=== PATIENT | female | born 1945 | race Caucasian/White ===

== ENCOUNTER 2016-08-19 16:09 | Emergency (ER) | payer MEDICARE, OTHER ==
[~2016-08-19] VITALS: Ht 177.8 cm; Wt 90.9 kg
[2016-08-19] VITALS (7 sets, daily range): BP systolic 104–120; BP diastolic 32–59
[~2016-08-19 16:09] MED LIST: ACET-1757 PO; ACET325T26 PO; ACID1TAB7 PO; ATEN25TA PO; ATEN50TA41 PO; BUME0.5T PO; CEFD300C37 PO; DIPH60LI PO; HYDR12.53 PO; HYDR12.58 PO; IRON1TAB2 PO; METR500T PO; MORP10SO PO; MULT-709 PO; NYST1000 PO; NYST60PO TP; OMEP-110 PO; OMEP40CA6 PO; ONDA4TAB10 PO; POTA10CA PO; POTA10TA11 PO; POTA20PA PO; SUCR1TAB PO; SUCR1TAB26 PO; WARF1TAB PO
[2016-08-19] MEDS ORDERED: SODIUM CHLORIDE FLUSH 10ML SYR IVF ONE (16:30)
[2016-08-19] MEDS ORDERED: SODIUM CHLORIDE 0.9% 1,000 ML IV ONE (16:30)
[2016-08-19 17:23] LABS: BLOOD UREA NITROGEN 35 mg/dL (7-18)
[2016-08-19 17:45] LABS: DIFF TOTAL CELLS COUNTED 100 CELL DIFF
[2016-08-19 17:47] LABS: VERIFY COUNTS? YES
[2016-08-19 17:48] LABS: ANISOCYTOSIS 2+; HYPOCHROMIA 2+; MICROCYTOSIS 2+; OVALOCYTES 2+; SCHISTOCYTES 1+
[2016-08-19 18:33] LABS: OCCBLD OBC PASS
== END 2016-08-19 21:48 | disposition home or self-care (01) ==
LOC: ED 21:42
DX: N28.9 Disorder of kidney and ureter, unspecified (principal); D62 Acute posthemorrhagic anemia; E11.9 Type 2 diabetes mellitus without complications; I10 Essential (primary) hypertension; Z88.0 Allergy status to penicillin; Z88.1 Allergy status to other antibiotic agents; Z91.040 Latex allergy status; Z88.2 Allergy status to sulfonamides; Z93.3 Colostomy status
CPT/HCPCS: 36415; 36430; 80048; 82040; 82272; 85025; 85610; 85730; 86850; 86900; 86923; 93005; 96360; 96361; 99285; J7030; P9016

== ENCOUNTER 2016-09-15 14:05 | Inpatient (IN) | payer MEDICARE, OTHER ==
[~2016-09-15] VITALS: Ht 175.3 cm; Wt 95.3 kg
[2016-09-15] VITALS (10 sets, daily range): BP systolic 92–116; BP diastolic 44–69
[2016-09-15] MEDS ORDERED: PANTOPRAZOLE 80 MG in SODIUM CHLORIDE 0.9% 100 ML IVPB ONE (15:21)
[2016-09-15] MEDS ORDERED: SODIUM CHLORIDE 0.9% 1,000ML IVBOLUS ONE (15:30)
[2016-09-15] MEDS ORDERED: SODIUM CHLORIDE FLUSH 10ML SYR IVF ONE (15:30)
[2016-09-15 16:08] LABS: BLOOD UREA NITROGEN 33 mg/dL (7-18)
[2016-09-15 16:32] LABS: DIFF TOTAL CELLS COUNTED 100 CELL DIFF
[2016-09-15 16:34] LABS: VERIFY COUNTS? YES
[2016-09-15 16:35] LABS: ANISOCYTOSIS 2+; HYPOCHROMIA 2+; MICROCYTOSIS 2+; OVALOCYTES 1+
[2016-09-15 16:36] LABS: LARGE PLATELETS 1+
[2016-09-15] MEDS ORDERED: POTASSIUM CHLORIDE 20 MEQ TAB.ER.PRT PO ONE (17:30)
[2016-09-15] MEDS ORDERED: ONDANSETRON ODT 4 MG PO PRN (17:30)
[2016-09-15] MEDS ORDERED: PROMETHAZINE 25 MG/ML, 1ML IM PRN (17:30)
[2016-09-15] MEDS ORDERED: ONDANSETRON 2MG/ML, 2ML IVPush PRN (17:30)
[2016-09-15] MEDS: PANTOPRAZOLE 40 MG IV IVPush SCH (20:16)
[2016-09-15] MEDS: NS + 20MEQ KCL 1,000 ML IV SCH (20:16)
[2016-09-16] VITALS (12 sets, daily range): BP systolic 94–110; BP diastolic 49–67
[2016-09-16 03:39] LABS: ASPARTATE AMINO TRANSFERASE 14 U/L (15-37); BLOOD UREA NITROGEN 28 mg/dL (7-18)
[2016-09-16 03:56] LABS: DIFF TOTAL CELLS COUNTED 100 CELL DIFF
[2016-09-16 04:05] LABS: ANISOCYTOSIS 1+; VERIFY COUNTS? YES
[2016-09-16 04:06] LABS: HYPOCHROMIA 1+; OVALOCYTES 1+
[2016-09-16 04:07] LABS: LARGE PLATELETS 1+
[2016-09-16 04:41] LABS: OCCBLD OBC PASS
[2016-09-16] MEDS ORDERED: FENTANYL PF 100 MCG/2ML ONE (08:19)
[2016-09-16] MEDS ORDERED: MIDAZOLAM 1 MG/ML, 5ML ONE (08:19)
[2016-09-16] MEDS: PANTOPRAZOLE 40 MG IV IVPush SCH ×2 (11:10→22:51)
[2016-09-16] MEDS: NS + 20MEQ KCL 1,000 ML IV SCH (11:12)
[2016-09-17] VITALS (15 sets, daily range): BP systolic 91–113; BP diastolic 50–65
[2016-09-17] MEDS ORDERED: ACETAMINOPHEN 325 MG TABLET ONE (02:09)
[2016-09-17] MEDS: NS + 20MEQ KCL 1,000 ML IV SCH ×2 (02:16→12:00)
[2016-09-17] MEDS ORDERED: ACETAMINOPHEN 325 MG TABLET PO ONE (02:30)
[2016-09-17 06:14] LABS: BLOOD UREA NITROGEN 24 mg/dL (7-18)
[2016-09-17 06:17] LABS: ASPARTATE AMINO TRANSFERASE 18 U/L (15-37)
[2016-09-17] MEDS ORDERED: IRON SUCROSE COMPLEX 500 MG in SODIUM CHLORIDE 0.9% 250 ML IV ONE (10:00)
[2016-09-17] MEDS ORDERED: IRON SUCROSE COMPLEX 100MG/5ML IV SCH (10:00)
[2016-09-18] MEDS: NS + 20MEQ KCL 1,000 ML IV SCH ×3 (00:59→23:10)
[2016-09-18 03:17] VITALS: BP 113/65
[2016-09-18 05:39] LABS: BLOOD UREA NITROGEN 21 mg/dL (7-18)
[2016-09-18 06:43] LABS: DIFF TOTAL CELLS COUNTED 100 CELL DIFF
[2016-09-18 06:50] LABS: VERIFY COUNTS? YES
[2016-09-18 06:51] LABS: ANISOCYTOSIS 1+; HYPOCHROMIA 1+; OVALOCYTES 1+
[2016-09-18 06:52] LABS: LARGE PLATELETS 1+
[2016-09-18 07:41] VITALS: BP 100/63
[2016-09-18] MEDS: IRON SUCROSE COMPLEX 100MG/5ML IV SCH (09:37)
[2016-09-18 13:59] VITALS: BP 99/60
[2016-09-18 19:32] VITALS: BP 106/65
[2016-09-19 00:44] VITALS: BP 95/59
[2016-09-19 06:07] LABS: ANISOCYTOSIS 1+; MICROCYTOSIS 1+
[2016-09-19 06:08] LABS: HYPOCHROMIA 1+; OVALOCYTES 1+
[2016-09-19 06:10] LABS: LARGE PLATELETS 1+
[2016-09-19 06:50] VITALS: BP 95/53
[2016-09-19] MEDS ORDERED: FERR325T20 PO (09:00)
[2016-09-19] MEDS: IRON SUCROSE COMPLEX 100MG/5ML IV SCH (09:00)
[2016-09-19] MEDS ORDERED: OMEP-110 PO (09:15)
== END 2016-09-19 11:04 | disposition home or self-care (01) | DRG 393 ==
LOC: ED 16:39 → EDIP 17:02 → 4EST 18:30
PROC: 30233N1 Transfusion of Nonautologous Red Blood Cells into Peripheral Vein, Percutaneous Approach (ICD-10-PCS; 2016-09-15)
PROC: 0DB98ZX Excision of Duodenum, Via Natural or Artificial Opening Endoscopic, Diagnostic (ICD-10-PCS; 2016-09-16)
PROC: 0DJD8ZZ Inspection of Lower Intestinal Tract, Via Natural or Artificial Opening Endoscopic (ICD-10-PCS; principal; 2016-09-16 08:30)
DX: K94.11 Enterostomy hemorrhage (principal); E43 Unspecified severe protein-calorie malnutrition; N17.0 Acute kidney failure with tubular necrosis; K76.6 Portal hypertension; D62 Acute posthemorrhagic anemia; E87.1 Hypo-osmolality and hyponatremia; D61.818 Other pancytopenia; K92.1 Melena; I85.00 Esophageal varices without bleeding; K31.7 Polyp of stomach and duodenum; D69.6 Thrombocytopenia, unspecified; D72.819 Decreased white blood cell count, unspecified; E87.6 Hypokalemia; K76.0 Fatty (change of) liver, not elsewhere classified; I12.9 Hypertensive chronic kidney disease with stage 1 through stage 4 chronic kidney disease, or unspecified chronic kidney disease; E66.01 Morbid (severe) obesity due to excess calories; M54.9 Dorsalgia, unspecified; G89.29 Other chronic pain; N18.9 Chronic kidney disease, unspecified; E11.22 Type 2 diabetes mellitus with diabetic chronic kidney disease; Y83.2 Surgical operation with anastomosis, bypass or graft as the cause of abnormal reaction of the patient, or of later complication, without mention of misadventure at the time of the procedure; K74.69 Other cirrhosis of liver; K21.9 Gastro-esophageal reflux disease without esophagitis; Y92.89 Other specified places as the place of occurrence of the external cause; Z87.891 Personal history of nicotine dependence; Z80.0 Family history of malignant neoplasm of digestive organs; Z88.5 Allergy status to narcotic agent; Z88.0 Allergy status to penicillin; Z88.2 Allergy status to sulfonamides; Z88.8 Allergy status to other drugs, medicaments and biological substances; Z88.1 Allergy status to other antibiotic agents; Z90.49 Acquired absence of other specified parts of digestive tract; Z91.040 Latex allergy status; Z85.038 Personal history of other malignant neoplasm of large intestine; Z68.31 Body mass index [BMI] 31.0-31.9, adult; K22.2 Esophageal obstruction
CPT/HCPCS: 36415; 36430; 80048; 80053; 80076; 82040; 82272; 82728; 83540; 83550; 84466; 85014; 85018; 85025; 85610; 85730; 86850; 86900; 86923; 88305; 93005; 96365; 99151; J1756; J2250; J3010; J3480; C9113; J7030; J7050; P9016

== ENCOUNTER 2016-10-14 17:33 | Emergency (ER) | payer MEDICARE, OTHER ==
[2016-10-14] VITALS (8 sets, daily range): BP systolic 99–113; BP diastolic 35–48
[~2016-10-14] VITALS: Ht 175.3 cm; Wt 93.6 kg
[~2016-10-14 17:33] MED LIST changes: +FERR325T20 PO
[2016-10-14] MEDS ORDERED: SODIUM CHLORIDE 0.9% 1,000ML IVBOLUS ONE (18:00)
[2016-10-14 18:09] LABS: DIFF TOTAL CELLS COUNTED 100 CELL DIFF
[2016-10-14 18:15] LABS: ASPARTATE AMINO TRANSFERASE 27 U/L (15-37); BLOOD UREA NITROGEN 30 mg/dL (7-18)
[2016-10-14 18:27] LABS: ANISOCYTOSIS 1+; HYPOCHROMIA 2+; MICROCYTOSIS 1+; OVALOCYTES 1+; POLYCHROMASIA 1+; VERIFY COUNTS? YES
[2016-10-14 18:28] LABS: LARGE PLATELETS 1+
== END 2016-10-14 23:01 | disposition home or self-care (01) ==
LOC: ED 20:08
DX: K92.2 Gastrointestinal hemorrhage, unspecified (principal); D64.9 Anemia, unspecified; I10 Essential (primary) hypertension; E11.9 Type 2 diabetes mellitus without complications; Z85.9 Personal history of malignant neoplasm, unspecified
CPT/HCPCS: 36415; 36430; 80053; 85025; 86850; 86900; 86923; 99285; P9016

== ENCOUNTER 2016-12-07 17:45 | Inpatient (IN) | payer MEDICARE, OTHER ==
[~2016-12-07] VITALS: Ht 175.3 cm; Wt 94.4 kg
[~2016-12-07 17:45] MED LIST changes: +FERR325T18 PO; -FERR325T20 PO; -SUCR1TAB26 PO; +SUCR1TAB33 PO
[2016-12-07] MEDS ORDERED: SODIUM CHLORIDE 0.9% 1,000ML IVBOLUS ONE (18:30)
[2016-12-07] MEDS ORDERED: SODIUM CHLORIDE FLUSH 10ML SYR IVF ONE (18:30)
[2016-12-07 18:33] LABS: HEMATOCRIT 25.1 % (34.6-47.8)
[2016-12-07 18:42] LABS: BLOOD UREA NITROGEN 32 mg/dL (7-18)
[2016-12-07 18:45] LABS: ASPARTATE AMINO TRANSFERASE 23 U/L (15-37)
[2016-12-07 18:54] LABS: ANISOCYTOSIS 1+; HYPOCHROMIA 1+; MICROCYTOSIS 1+; POLYCHROMASIA 1+
[2016-12-07 18:55] LABS: OVALOCYTES 1+
[2016-12-07 19:08] LABS: WHITE BLOOD COUNT 4.5 x10^3/uL (3.4-10)
[2016-12-07 23:23] VITALS: BP 111/55
[2016-12-08] VITALS (9 sets, daily range): BP systolic 80–147; BP diastolic 50–71
[2016-12-08] MEDS ORDERED: PROMETHAZINE 25 MG/ML, 1ML IM PRN
[2016-12-08] MEDS ORDERED: ACETAMINOPHEN 325 MG TABLET PO PRN
[2016-12-08] MEDS ORDERED: ONDANSETRON 2MG/ML, 2ML IVPush PRN
[2016-12-08 00:14] LABS: HEMATOCRIT 25.1 % (34.6-47.8); HEMOGLOBIN 7.7 g/dL (11.7-16.4)
[2016-12-08] MEDS: SODIUM CHLORIDE 0.9% 1,000 ML IV SCH ×3 (00:15→19:45)
[2016-12-08 06:14] LABS: HEMOGLOBIN 6.2 g/dL (11.7-16.4)
[2016-12-08 06:23] LABS: BLOOD UREA NITROGEN 31 mg/dL (7-18)
[2016-12-08 06:26] LABS: ASPARTATE AMINO TRANSFERASE 21 U/L (15-37)
[2016-12-08] MEDS ORDERED: FENTANYL PF 100 MCG/2ML ONE (10:20)
[2016-12-08] MEDS ORDERED: MIDAZOLAM 1 MG/ML, 5ML ONE (10:20)
[2016-12-08] MEDS ORDERED: SILVER NITRATE STICK TP ONE (11:34)
[2016-12-09 00:07] LABS: HEMATOCRIT 26.3 % (34.6-47.8); HEMOGLOBIN 8.6 g/dL (11.7-16.4)
[2016-12-09 04:29] VITALS: BP 94/57
[2016-12-09] MEDS: SODIUM CHLORIDE 0.9% 1,000 ML IV SCH (05:45)
[2016-12-09 06:25] LABS: HEMATOCRIT 24.2 % (34.6-47.8); HEMOGLOBIN 7.9 g/dL (11.7-16.4)
[2016-12-09 06:35] LABS: ASPARTATE AMINO TRANSFERASE 22 U/L (15-37); BLOOD UREA NITROGEN 25 mg/dL (7-18)
[2016-12-09 08:30] VITALS: BP 96/57
[2016-12-09 09:08] VITALS: BP 95/64
[2016-12-09 11:53] LABS: HEMATOCRIT 26.8 % (34.6-47.8); HEMOGLOBIN 8.3 g/dL (11.7-16.4)
[2016-12-09 15:00] VITALS: BP 97/63
[2016-12-09 18:34] VITALS: BP 100/61
== END 2016-12-09 18:55 | disposition home or self-care (01) | DRG 393 ==
LOC: ED 18:41 → EDIP 22:22 → 4NOR 23:07
PROVIDERS: ADMIT Internal Medicine; ATTEND Internal Medicine
PROC: 30233N1 Transfusion of Nonautologous Red Blood Cells into Peripheral Vein, Percutaneous Approach (ICD-10-PCS; 2016-12-08)
PROC: 0DJD8ZZ Inspection of Lower Intestinal Tract, Via Natural or Artificial Opening Endoscopic (ICD-10-PCS; principal; 2016-12-08 10:00)
DX: K94.11 Enterostomy hemorrhage (principal); E43 Unspecified severe protein-calorie malnutrition; I81 Portal vein thrombosis; N17.9 Acute kidney failure, unspecified; D68.69 Other thrombophilia; E11.22 Type 2 diabetes mellitus with diabetic chronic kidney disease; I85.00 Esophageal varices without bleeding; E87.1 Hypo-osmolality and hyponatremia; I82.891 Chronic embolism and thrombosis of other specified veins; D62 Acute posthemorrhagic anemia; N18.3 Chronic kidney disease, stage 3 (moderate); K74.69 Other cirrhosis of liver; Z68.30 Body mass index [BMI] 30.0-30.9, adult; D73.5 Infarction of spleen; I12.9 Hypertensive chronic kidney disease with stage 1 through stage 4 chronic kidney disease, or unspecified chronic kidney disease; K21.9 Gastro-esophageal reflux disease without esophagitis; K75.81 Nonalcoholic steatohepatitis (NASH); Z82.49 Family history of ischemic heart disease and other diseases of the circulatory system; Z85.038 Personal history of other malignant neoplasm of large intestine; Z87.891 Personal history of nicotine dependence; Z90.49 Acquired absence of other specified parts of digestive tract; Z93.3 Colostomy status; Z88.5 Allergy status to narcotic agent; Z88.0 Allergy status to penicillin; Z88.2 Allergy status to sulfonamides; Z88.8 Allergy status to other drugs, medicaments and biological substances
CPT/HCPCS: 36415; 78278; 80053; 85014; 85018; 85025; 85610; 85730; 86850; 86900; 86923; 99152; 99153; 99285; J2250; J3010; A9560; C9898; J7030; P9016

== ENCOUNTER 2017-02-22 15:02 | Inpatient (IN) | payer MEDICARE, OTHER ==
[~2017-02-22] VITALS: Ht 177.8 cm; Wt 97.8 kg
[2017-02-22] VITALS (8 sets, daily range): BP systolic 94–117; BP diastolic 43–71
[2017-02-22] MEDS ORDERED: SODIUM CHLORIDE FLUSH 10ML SYR IVF ONE (15:30)
[2017-02-22] MEDS ORDERED: SODIUM CHLORIDE 0.9% 1,000ML IVBOLUS ONE (15:30)
[2017-02-22 16:07] LABS: ASPARTATE AMINO TRANSFERASE 22 U/L (15-37); BLOOD UREA NITROGEN 32 mg/dL (7-18)
[2017-02-22 16:11] LABS: WHITE BLOOD COUNT 3.1 x10^3/uL (3.4-10)
[2017-02-22 16:12] LABS: HEMATOCRIT 13.4 % (34.6-47.8)
[2017-02-22 16:27] LABS: DIFF TOTAL CELLS COUNTED 200 CELL DIFF; VERIFY COUNTS? YES
[2017-02-22 16:28] LABS: ANISOCYTOSIS 1+
[2017-02-22 16:29] LABS: HYPOCHROMIA 2+; MICROCYTOSIS 2+; OVALOCYTES 1+; POIKILOCYTOSIS 1+; POLYCHROMASIA 1+; SCHISTOCYTES 1+; TARGET CELLS 1+
[2017-02-22] MEDS ORDERED: POTASSIUM CHLORIDE 20 MEQ TAB.ER.PRT PO ONE ×2 (16:30→20:00)
[2017-02-22] MEDS ORDERED: POTASSIUM CHLORIDE 40 MEQ in SODIUM CHLORIDE 0.9% 500 ML IV ONE (16:30)
[2017-02-22 16:31] LABS: GIANT PLATELETS 1+
[2017-02-22] MEDS ORDERED: ONDANSETRON 2MG/ML, 2ML IVPush PRN (18:00)
[2017-02-22] MEDS ORDERED: ACETAMINOPHEN 650 MG SUPP PR PRN (18:00)
[2017-02-22] MEDS ORDERED: FUROSEMIDE 20 MG/2 ML IVPush ONE (18:00)
[2017-02-23] VITALS (23 sets, daily range): BP systolic 86–114; BP diastolic 42–72
[2017-02-23 01:33] LABS: PATH.CAST-FLAG NOT PRESENT; SPERM-FLAG NOT PRESENT; SRC-FLAG NOT PRESENT; XTAL-FLAG NOT PRESENT; YLC-FLAG NOT PRESENT
[2017-02-23] MEDS ORDERED: CALCIUM CARBONATE 500 MG TAB.CHEW PO PRN (02:00)
[2017-02-23] MEDS ORDERED: POTASSIUM CHLORIDE 20 MEQ TAB.ER.PRT PO ONE ×2 (06:00→13:30)
[2017-02-23 10:40] LABS: BLOOD UREA NITROGEN 26 mg/dL (7-18)
[2017-02-23 11:02] LABS: WHITE BLOOD COUNT 2.3 x10^3/uL (3.4-10)
[2017-02-23 11:04] LABS: HEMOGLOBIN 6.9 g/dL (11.7-16.4)
[2017-02-23] MEDS ORDERED: FUROSEMIDE 20 MG/2 ML IVPush ONE ×2 (11:15→13:30)
[2017-02-23 13:25] LABS: HEMATOCRIT 21.4 % (34.6-47.8); HEMOGLOBIN 6.9 g/dL (11.7-16.4)
[2017-02-24 01:13] VITALS: BP 113/68
[2017-02-24 01:18] VITALS: BP 113/68
[2017-02-24 06:44] VITALS: BP 90/51
[2017-02-24 10:23] LABS: BLOOD UREA NITROGEN 28 mg/dL (7-18)
[2017-02-24 15:15] VITALS: BP 114/66
[2017-02-24 18:59] VITALS: BP 96/58
[2017-02-24] MEDS ORDERED: POTASSIUM CHLORIDE 20 MEQ TAB.ER.PRT PO ONE (21:30)
[2017-02-25] VITALS (11 sets, daily range): BP systolic 92–109; BP diastolic 47–64
[2017-02-25 06:36] LABS: HEMATOCRIT 23.8 % (34.6-47.8); HEMOGLOBIN 7.8 g/dL (11.7-16.4); WHITE BLOOD COUNT 2.8 x10^3/uL (3.4-10)
[2017-02-25 06:44] LABS: BLOOD UREA NITROGEN 28 mg/dL (7-18)
[2017-02-25] MEDS ORDERED: SUCCINYLCHOLINE 20 MG/ML, 10ML ONE (13:39)
[2017-02-25] MEDS ORDERED: GLYCOPYRROLATE 0.2MG/1ML, 5ML ONE (13:39)
[2017-02-25] MEDS ORDERED: CEFOTETAN 2 GM ONE (13:39)
[2017-02-25] MEDS ORDERED: DEXAMETHASONE 4 MG/ML, 1ML ONE (13:39)
[2017-02-25] MEDS ORDERED: ROCURONIUM 10 MG/ML,10ML ONE (13:39)
[2017-02-25] MEDS ORDERED: NEOSTIGMINE 1 MG/ML, 10ML ONE (13:39)
[2017-02-25] MEDS ORDERED: ONDANSETRON 2MG/ML, 2ML ONE (13:39)
[2017-02-25] MEDS ORDERED: PROPOFOL 10 MG/ML, 20ML ONE (13:39)
[2017-02-25] MEDS ORDERED: LABETALOL 5MG/ML, 20ML IV PRN (15:00)
[2017-02-25] MEDS ORDERED: ONDANSETRON 2MG/ML, 2ML IVPush PRN (15:00)
[2017-02-25] MEDS ORDERED: OXYcodone 5 MG/5 ML ORAL.SOL UDC PO PRN (15:00)
[2017-02-25] MEDS ORDERED: HYDROmorphone 1 MG/ML, 1ML IV PRN (15:00)
[2017-02-25] MEDS ORDERED: FENTANYL PF 100 MCG/2ML IV PRN (15:00)
[2017-02-25] MEDS ORDERED: hydrALAzine 20 MG/ML, 1ML IV PRN (15:00)
[2017-02-25] MEDS ORDERED: OXYcodone 5 MG/5 ML ORAL.SOL UDC ONE (15:06)
[2017-02-25] MEDS ORDERED: HYDROmorphone 1 MG/ML, 1ML ONE (15:06)
[2017-02-25] MEDS: POTASSIUM CHLORIDE 20 MEQ in LACTATED RINGERS 1,000 ML IV SCH ×2 (17:52→23:10)
[2017-02-26 03:32] VITALS: BP 102/62
[2017-02-26 06:38] VITALS: BP 98/46
[2017-02-26 07:57] LABS: BLOOD UREA NITROGEN 30 mg/dL (7-18)
[2017-02-26 08:09] LABS: HEMATOCRIT 32.1 % (34.6-47.8); HEMOGLOBIN 10.3 g/dL (11.7-16.4); WHITE BLOOD COUNT 4.3 x10^3/uL (3.4-10)
[2017-02-26 09:03] LABS: HYPOCHROMIA 1+; MICROCYTOSIS 1+; OVALOCYTES 1+; POLYCHROMASIA 1+
[2017-02-26 09:04] LABS: SCHISTOCYTES 1+
[2017-02-26 09:06] LABS: LARGE PLATELETS 1+
[2017-02-26 12:12] VITALS: BP 103/45
[2017-02-26] MEDS: POTASSIUM CHLORIDE 20 MEQ in LACTATED RINGERS 1,000 ML IV SCH (13:00)
[2017-02-26] MEDS ORDERED: ACETAMINOPHEN 325 MG TABLET PO PRN (14:00)
[2017-02-26 19:16] VITALS: BP 113/66
[2017-02-27 02:05] VITALS: BP 102/60
[2017-02-27] MEDS ORDERED: FERR325T18 PO (06:45)
[2017-02-27] MEDS ORDERED: ASCO-96 PO (06:46)
[2017-02-27 07:33] VITALS: BP 101/60
[2017-02-27 13:26] VITALS: BP 102/57
== END 2017-02-27 16:35 | disposition home or self-care (01) | DRG 329 ==
LOC: ED 16:43 → EDIP 16:44 → ED 16:52 → 4WST 18:02
PROVIDERS: ADMIT Internal Medicine; ATTEND Internal Medicine
PROC: 30233N1 Transfusion of Nonautologous Red Blood Cells into Peripheral Vein, Percutaneous Approach (ICD-10-PCS; 2017-02-22)
PROC: 0DQB0ZZ Repair Ileum, Open Approach (ICD-10-PCS; principal; 2017-02-25 13:30)
DX: K94.13 Enterostomy malfunction (principal); E43 Unspecified severe protein-calorie malnutrition; I85.11 Secondary esophageal varices with bleeding; I82.890 Acute embolism and thrombosis of other specified veins; K76.6 Portal hypertension; E11.22 Type 2 diabetes mellitus with diabetic chronic kidney disease; R18.8 Other ascites; D62 Acute posthemorrhagic anemia; D73.5 Infarction of spleen; T85.638A Leakage of other specified internal prosthetic devices, implants and grafts, initial encounter; K94.11 Enterostomy hemorrhage; N18.3 Chronic kidney disease, stage 3 (moderate); D50.0 Iron deficiency anemia secondary to blood loss (chronic); K21.9 Gastro-esophageal reflux disease without esophagitis; E87.6 Hypokalemia; G89.29 Other chronic pain; I12.9 Hypertensive chronic kidney disease with stage 1 through stage 4 chronic kidney disease, or unspecified chronic kidney disease; K74.69 Other cirrhosis of liver; K75.81 Nonalcoholic steatohepatitis (NASH); M54.9 Dorsalgia, unspecified; D12.6 Benign neoplasm of colon, unspecified; Y83.3 Surgical operation with formation of external stoma as the cause of abnormal reaction of the patient, or of later complication, without mention of misadventure at the time of the procedure; Y92.89 Other specified places as the place of occurrence of the external cause; Z85.038 Personal history of other malignant neoplasm of large intestine; Z86.718 Personal history of other venous thrombosis and embolism; Z87.891 Personal history of nicotine dependence; Z90.49 Acquired absence of other specified parts of digestive tract; Z93.3 Colostomy status; Z88.0 Allergy status to penicillin; Z88.1 Allergy status to other antibiotic agents; Z88.2 Allergy status to sulfonamides; Z88.8 Allergy status to other drugs, medicaments and biological substances
CPT/HCPCS: 36415; 71010; 80048; 80053; 81001; 83735; 85014; 85018; 85025; 85610; 85730; 86850; 86900; 86923; 87077; 87086; 87186; 93005; 96360; J1100; J1170; J2250; J2405; J2704; J2710; J3010; J3480; J3490; J0330; J1940; J7030; J7040; J7120; P9016; S0074

== ENCOUNTER → 2017-04-26 | Outpatient (CLI) | payer MEDICARE, OTHER ==
[~2017-04-26] MED LIST changes: +ASCO-96 PO
== END | disposition home or self-care (01) ==
LOC: CFH 08:39
PROVIDERS: ATTEND Internal Medicine Gastroenterology
DX: I81 Portal vein thrombosis (principal); D62 Acute posthemorrhagic anemia; I10 Essential (primary) hypertension; K74.69 Other cirrhosis of liver; I85.00 Esophageal varices without bleeding; D50.0 Iron deficiency anemia secondary to blood loss (chronic); G89.29 Other chronic pain; T39.395S Adverse effect of other nonsteroidal anti-inflammatory drugs [NSAID], sequela
CPT/HCPCS: 76700

== ENCOUNTER 2017-05-20 07:04 | Day surgery (SDC) | payer MEDICARE, OTHER ==
[~2017-05-20] VITALS: Ht 177.8 cm; Wt 99.9 kg
[2017-05-20 08:31] VITALS: BP 112/64
[2017-05-20] MEDS ORDERED: SODIUM CHLORIDE 0.9% 1,000 ML IV SCH (08:43)
[2017-05-20] MEDS ORDERED: NONE PER PT (08:47)
[2017-05-20 08:49] LABS: INTERNATIONAL NORMALIZED RATIO 1.17 (0.93-1.1)
[2017-05-20] MEDS ORDERED: LIDOCAINE 1%, 20ML ONE (08:54)
[2017-05-20] MEDS ORDERED: LIDOCAINE 2%, 20ML ONE (08:55)
[2017-05-20 09:35] LABS: MEAN CORPUSCULAR HEMOGLOBIN 23.2 pg (27.0-34.8); MEAN CORPUSCULAR HGB CONC 31.5 g/dL (32.4-35.8); MEAN CORPUSCULAR VOLUME 73.6 fL (80-100); PLATELET COUNT 92 x10^3/uL (130-400); RED BLOOD COUNT 3.01 x10^6/uL (3.82-5.3); RED CELL DISTRIBUTION WIDTH 17.8 % (9.6-15.2)
[2017-05-20 09:41] LABS: MD YES
[2017-05-20 09:47] LABS: EOS#(MANUAL) 0.07 x10^3/uL (0.0-0.4); EOS% (MANUAL) 4 % (1-7); LYMPH#(MANUAL) 0.32 x10^3/uL (1-3.4); LYMPHS% (MANUAL) 18 % (22-44); MONOS#(MANUAL) 0.11 x10^3/uL (0.3-2.7); MONOS% (MANUAL) 6 % (2-9); SEGS% (MANUAL) 72 % (42-75)
[2017-05-20 09:49] LABS: ANISOCYTOSIS 1+; HYPOCHROMIA 1+; MICROCYTOSIS 1+; OVALOCYTES 1+
[2017-05-20 09:50] LABS: SCHISTOCYTES 1+
[2017-05-20 09:51] LABS: <PLATELET ESTIMATE> DECREASED; <PLT MORPHOLOGY> NORMAL PLT MORPH
[2017-05-20 11:24] LABS: ANION GAP 8 mmol/L (5-15); CALCIUM 7.9 mg/dL (8.5-10.1); CHLORIDE 109 mmol/L (98-107)
[2017-05-20 11:25] LABS: CREATININE 1.39 mg/dL (0.55-1.02)
== END 2017-05-20 11:00 ==
LOC: ORIP 07:04 → UNDOADMIN 07:04 → RAD 07:04 → UNDODISIN 11:00
PROVIDERS: ATTEND Internal Medicine Gastroenterology
DX: K74.60 Unspecified cirrhosis of liver (principal); Z53.9 Procedure and treatment not carried out, unspecified reason
CPT/HCPCS: 36415; 37182; 80048; 85025; 85610; J3490; J7030

== ENCOUNTER 2017-05-31 16:13 | Emergency (ER) | payer MEDICARE, OTHER ==
[~2017-05-31] VITALS: Ht 177.8 cm; Wt 99.9 kg
[2017-05-31] VITALS (7 sets, daily range): BP systolic 111–128; BP diastolic 40–51
[~2017-05-31 16:13] MED LIST changes: +NONE PER PT
[2017-05-31 17:15] LABS: ALANINE AMINOTRANSFERASE 23 U/L (12-78); ALBUMIN 2.8 g/dL (3.4-5.0); ANION GAP 7 mmol/L (5-15); CALCIUM 7.8 mg/dL (8.5-10.1); CHLORIDE 110 mmol/L (98-107); CREATININE 1.35 mg/dL (0.55-1.02)
[2017-05-31 17:17] LABS: ALKALINE PHOSPHATASE 127 U/L (45-117); BILIRUBIN,TOTAL 0.6 mg/dL (0.2-1.0); TOTAL PROTEIN 6.2 g/dL (6.4-8.2)
[2017-05-31 17:18] LABS: MD YES; MEAN CORPUSCULAR HEMOGLOBIN 22.4 pg (27.0-34.8); MEAN CORPUSCULAR HGB CONC 31.3 g/dL (32.4-35.8); MEAN CORPUSCULAR VOLUME 71.4 fL (80-100); MEAN PLATELET VOLUME 10.8 fL (7.4-10.4); PLATELET COUNT 104 x10^3/uL (130-400); RED BLOOD COUNT 3.22 x10^6/uL (3.82-5.3)
[2017-05-31 17:35] LABS: ANISOCYTOSIS 1+; EOS#(MANUAL) 0.04 x10^3/uL (0.0-0.4); EOS% (MANUAL) 2 % (1-7); LYMPH#(MANUAL) 0.32 x10^3/uL (1-3.4); LYMPHS% (MANUAL) 16 % (22-44); MONOS#(MANUAL) 0.08 x10^3/uL (0.3-2.7); MONOS% (MANUAL) 4 % (2-9); SEG#(MANUAL) 1.56 x10^3/uL (1.8-6.8); SEGS% (MANUAL) 78 % (42-75)
[2017-05-31 17:36] LABS: <PLATELET ESTIMATE> DECREASED; <PLT MORPHOLOGY> NORMAL PLT MORPH; HYPOCHROMIA 1+; MICROCYTOSIS 1+; OVALOCYTES 1+; SCHISTOCYTES 1+
[2017-05-31] MEDS ORDERED: SODIUM CHLORIDE 0.9% 1,000ML IVBOLUS ONE (19:00)
[2017-05-31] MEDS ORDERED: SODIUM CHLORIDE FLUSH 10ML SYR IVF ONE (19:00)
[2017-05-31] MEDS ORDERED: PANTOPRAZOLE 40 MG IV IVPush ONE (19:00)
[2017-05-31 19:02] LABS: INTERNATIONAL NORMALIZED RATIO 1.12 (0.93-1.1); PROTHROMBIN TIME 11.5 Seconds (9.6-11.5)
[2017-05-31] MEDS ORDERED: PANTOPRAZOLE 40 MG IV ONE (19:25)
== END 2017-05-31 22:29 | disposition left against medical advice (07) ==
LOC: ED 18:00
DX: K92.1 Melena (principal); D62 Acute posthemorrhagic anemia; E11.9 Type 2 diabetes mellitus without complications; I10 Essential (primary) hypertension; E87.6 Hypokalemia; Z90.49 Acquired absence of other specified parts of digestive tract; Z93.3 Colostomy status
CPT/HCPCS: 36415; 36430; 80053; 85025; 85610; 85730; 86850; 86900; 86923; 96361; 96374; 99285; C9113; J7030; P9016

== ENCOUNTER 2017-06-21 05:48 | Day surgery (SDC) | payer MEDICARE, OTHER ==
[2017-06-18 14:20] LABS: INTERNATIONAL NORMALIZED RATIO 1.12 (0.93-1.1); PROTHROMBIN TIME 11.6 Seconds (9.6-11.5)
[~2017-06-21] VITALS: Ht 177.8 cm; Wt 100.6 kg
[~2017-06-21 05:48] MED LIST changes: +No meds per pt.
[2017-06-21] MEDS ORDERED: EPINEPHRINE 1 MG/ML, 1ML ONE (06:16)
[2017-06-21] MEDS ORDERED: BUPIVACAINE/PF 0.25% ONE (06:16)
[2017-06-21] MEDS ORDERED: BUPIVACAINE/PF 0.5% ONE (06:22)
[2017-06-21 06:31] VITALS: BP 131/47
[2017-06-21] MEDS ORDERED: LACTATED RINGERS 1,000 ML IV SCH (06:33)
[2017-06-21 07:32] LABS: INTERNATIONAL NORMALIZED RATIO 1.16 (0.93-1.1)
[2017-06-21] MEDS ORDERED: MIDAZOLAM 1 MG/ML, 2ML ONE ×2 (07:37→11:58)
[2017-06-21] MEDS ORDERED: FENTANYL PF 250 MCG/5ML ONE (07:38)
[2017-06-21] MEDS ORDERED: ACETAMINOPHEN 500 MG TABLET ONE (07:42)
[2017-06-21] MEDS ORDERED: SCOPOLAMINE PATCH, 1.5MG PATCH.TD72 TD ONE ×2 (07:42→08:00)
[2017-06-21 07:45] LABS: MEAN CORPUSCULAR HEMOGLOBIN 23.4 pg (27.0-34.8); MEAN CORPUSCULAR HGB CONC 32.1 g/dL (32.4-35.8); MEAN CORPUSCULAR VOLUME 73.1 fL (80-100); MEAN PLATELET VOLUME 8.6 fL (7.4-10.4); PLATELET COUNT 129 x10^3/uL (130-400); RED BLOOD COUNT 3.37 x10^6/uL (3.82-5.3); RED CELL DISTRIBUTION WIDTH 22.4 % (9.6-15.2)
[2017-06-21 07:47] LABS: MD YES
[2017-06-21 07:49] LABS: BASOS#(MANUAL) 0.02 x10^3/uL (0-0.1); BASOS% (MANUAL) 1 % (0-1); EOS% (MANUAL) 5 % (1-7); LYMPH#(MANUAL) 0.26 x10^3/uL (1-3.4); LYMPHS% (MANUAL) 13 % (22-44); MONOS#(MANUAL) 0.14 x10^3/uL (0.3-2.7); MONOS% (MANUAL) 7 % (2-9); SEG#(MANUAL) 1.48 x10^3/uL (1.8-6.8); SEGS% (MANUAL) 74 % (42-75)
[2017-06-21 07:50] LABS: ANISOCYTOSIS 1+; HYPOCHROMIA 1+; MICROCYTOSIS 1+
[2017-06-21 07:51] LABS: <PLATELET ESTIMATE> DECREASED; OVALOCYTES 1+; SCHISTOCYTES 1+
[2017-06-21 07:52] LABS: <PLT MORPHOLOGY> NORMAL PLT MORPH
[2017-06-21] MEDS ORDERED: PROPOFOL 50 ML ONE ×2 (07:53→08:52)
[2017-06-21] MEDS ORDERED: ACETAMINOPHEN 500 MG TABLET PO ONE (08:00)
[2017-06-21] MEDS ORDERED: KETOROLAC 30 MG/1 ML ONE (08:02)
[2017-06-21] MEDS ORDERED: REMIFENTANIL 2 MG ONE (08:15)
[2017-06-21] MEDS ORDERED: ONDANSETRON 2MG/ML, 2ML ONE ×4 (09:11→12:32)
[2017-06-21] MEDS ORDERED: ROCURONIUM 10 MG/ML,10ML ONE (09:11)
[2017-06-21] MEDS ORDERED: SUCCINYLCHOLINE 20 MG/ML, 10ML ONE (09:11)
[2017-06-21] MEDS ORDERED: PROPOFOL 10 MG/ML, 20ML ONE ×2 (09:11→11:59)
[2017-06-21] MEDS ORDERED: CEFAZOLIN 1,000 MG ONE (09:11)
[2017-06-21] MEDS ORDERED: DEXAMETHASONE 4 MG/ML, 1ML ONE ×3 (09:11→12:32)
[2017-06-21] MEDS ORDERED: OXYcodone 5 MG/5 ML ORAL.SOL UDC PO PRN (09:30)
[2017-06-21] MEDS ORDERED: DIAZEPAM 5 MG/ML, 2ML IVPush PRN (09:30)
[2017-06-21] MEDS ORDERED: LABETALOL 5MG/ML, 20ML IV PRN (09:30)
[2017-06-21] MEDS ORDERED: ALBUTEROL SULFATE 2.5 MG/3 ML NPPB PRN (09:30)
[2017-06-21] MEDS ORDERED: HYDROcodone/APAP 7.5-325MG/15ML UDC PO PRN (09:30)
[2017-06-21] MEDS ORDERED: METOPROLOL 1 MG/ML, 5ML IV PRN (09:30)
[2017-06-21] MEDS ORDERED: hydrALAzine 20 MG/ML, 1ML IV PRN (09:30)
[2017-06-21] MEDS ORDERED: ONDANSETRON 2MG/ML, 2ML IVPush PRN (09:30)
[2017-06-21] MEDS ORDERED: PROMETHAZINE 25 MG/ML, 1ML IV PRN (09:30)
[2017-06-21] MEDS ORDERED: EPHEDRINE 50 MG/ML, 1ML IVPush PRN (09:30)
[2017-06-21] MEDS ORDERED: PROMETHAZINE 12.5 MG SUPP PR PRN (09:30)
[2017-06-21] MEDS ORDERED: HYDROmorphone 1 MG/ML, 1ML IV PRN (09:30)
[2017-06-21] MEDS ORDERED: MIDAZOLAM 1 MG/ML, 2ML IV PRN (09:30)
[2017-06-21] MEDS ORDERED: FENTANYL PF 100 MCG/2ML ONE ×2 (10:09→11:58)
[2017-06-21] MEDS: FENTANYL PF 100 MCG/2ML IV PRN ×2 (10:19→10:29)
[2017-06-21] MEDS ORDERED: LIDOCAINE-MPF 2% ,5ML ONE (11:59)
== END 2017-06-21 14:30 ==
LOC: OUT 05:48
PROVIDERS: ATTEND Surgery
DX: E04.1 Nontoxic single thyroid nodule (principal); I10 Essential (primary) hypertension; K74.60 Unspecified cirrhosis of liver; E66.01 Morbid (severe) obesity due to excess calories; Z85.038 Personal history of other malignant neoplasm of large intestine; Z90.49 Acquired absence of other specified parts of digestive tract; Z88.0 Allergy status to penicillin; Z88.2 Allergy status to sulfonamides; Z88.8 Allergy status to other drugs, medicaments and biological substances; Z82.61 Family history of arthritis; Z82.49 Family history of ischemic heart disease and other diseases of the circulatory system; Z80.9 Family history of malignant neoplasm, unspecified
CPT/HCPCS: 36415; 60220; 85025; 85610; 85730; 86850; 86900; 86923; 88307; 93005; C1729; C1760; J0171; J0330; J0690; J1100; J1885; J2250; J2405; J2704; J3010; J3490; J7120

== ENCOUNTER 2017-09-01 17:28 | Inpatient (IN) | payer MEDICARE, OTHER ==
[2017-09-01] VITALS (7 sets, daily range): BP systolic 105–145; BP diastolic 29–64
[~2017-09-01] VITALS: Ht 177.8 cm; Wt 108.6 kg
[2017-09-01] MEDS ORDERED: PANTOPRAZOLE 80 MG in SODIUM CHLORIDE 0.9% 100 ML IV SCH (18:30)
[2017-09-01] MEDS ORDERED: SODIUM CHLORIDE 0.9% 1,000ML IVBOLUS ONE (18:30)
[2017-09-01] MEDS ORDERED: SODIUM CHLORIDE FLUSH 10ML SYR IVF ONE ×2 (18:30→19:00)
[2017-09-01] MEDS ORDERED: PANTOPRAZOLE 40 MG IV IVPush ONE (18:30)
[2017-09-01 18:39] LABS: ANION GAP 13 mmol/L (5-15); CALCIUM 7.4 mg/dL (8.5-10.1); CHLORIDE 102 mmol/L (98-107)
[2017-09-01 18:40] LABS: ALBUMIN 2.8 g/dL (3.4-5.0)
[2017-09-01 18:43] LABS: ALANINE AMINOTRANSFERASE 24 U/L (12-78); ALKALINE PHOSPHATASE 96 U/L (45-117); BILIRUBIN,TOTAL 0.6 mg/dL (0.2-1.0); CREATININE 2.53 mg/dL (0.55-1.02); TOTAL PROTEIN 5.6 g/dL (6.4-8.2)
[2017-09-01 18:47] LABS: BASOPHILS % (AUTO) 0 % (0-1); EOSINOPHILS # (AUTO) 0.01 x10^3/uL (0-0.4); EOSINOPHILS % (AUTO) 0 % (1-7); INTERNATIONAL NORMALIZED RATIO 1.17 (0.93-1.1); LYMPHOCYTES # (AUTO) 0.49 x10^3/uL (1-3.4); LYMPHOCYTES % (AUTO) 12 % (22-44); MD MORPH REVIEW ONLY; MEAN CORPUSCULAR HEMOGLOBIN 19.5 pg (27.0-34.8); MEAN CORPUSCULAR HGB CONC 31.3 g/dL (32.4-35.8); MEAN CORPUSCULAR VOLUME 62.5 fL (80-100); MEAN PLATELET VOLUME 8.5 fL (7.4-10.4); MONOCYTES % (AUTO) 5 % (2-9); NEUTROPHILS # (AUTO) 3.42 x10^3/uL (1.8-6.8); NEUTROPHILS % (AUTO) 83 % (42-75); PLATELET COUNT 162 x10^3/uL (130-400); PROTHROMBIN TIME 12.1 Seconds (9.6-11.5); RED BLOOD COUNT 2.17 x10^6/uL (3.82-5.3)
[2017-09-01 18:50] LABS: ANISOCYTOSIS 1+; HYPOCHROMIA 1+
[2017-09-01 18:51] LABS: <PLATELET ESTIMATE> ADEQUATE; <PLT MORPHOLOGY> NORMAL PLT MORPH; OVALOCYTES 1+; SCHISTOCYTES 1+
[2017-09-01] MEDS ORDERED: ACETAMINOPHEN 325 MG TABLET PO PRN (20:00)
[2017-09-01] MEDS ORDERED: ONDANSETRON 2MG/ML, 2ML IVPush PRN (20:00)
[2017-09-01] MEDS ORDERED: PANTOPRAZOLE 40 MG IV ONE (20:14)
[2017-09-01] MEDS ORDERED: PANTOPRAZOLE 40 MG IV IVPush SCH (21:00)
[2017-09-01] MEDS: SODIUM CHLORIDE 0.9% 1,000 ML IV SCH (22:26)
[2017-09-01] MEDS: PANTOPRAZOLE 80 MG in SODIUM CHLORIDE 0.9% 100 ML IV SCH (23:00)
[2017-09-02] VITALS (14 sets, daily range): BP systolic 92–123; BP diastolic 50–77
[2017-09-02 01:20] LABS: MICROSCOPIC NOT IND
[2017-09-02 01:21] LABS: CULTURE INDICATED? NO
[2017-09-02 01:31] LABS: POTASSIUM,URINE RANDOM 41 mmol/L; SODIUM,URINE RANDOM 5 mmol/L
[2017-09-02 01:33] LABS: CHLORIDE,URINE RANDOM < 10 mmol/L
[2017-09-02 07:29] LABS: ALBUMIN 2.3 g/dL (3.4-5.0); ANION GAP 7 mmol/L (5-15); CALCIUM 6.9 mg/dL (8.5-10.1); CHLORIDE 108 mmol/L (98-107)
[2017-09-02 07:32] LABS: ALANINE AMINOTRANSFERASE 20 U/L (12-78); ALKALINE PHOSPHATASE 71 U/L (45-117); BILIRUBIN,TOTAL 2.6 mg/dL (0.2-1.0); CREATININE 2.26 mg/dL (0.55-1.02); TOTAL PROTEIN 4.5 g/dL (6.4-8.2)
[2017-09-02 07:40] LABS: MEAN CORPUSCULAR HGB CONC 33.3 g/dL (32.4-35.8); MEAN CORPUSCULAR VOLUME 72.1 fL (80-100); MEAN PLATELET VOLUME 10.5 fL (7.4-10.4); PLATELET COUNT 131 x10^3/uL (130-400); RED CELL DISTRIBUTION WIDTH 25.3 % (9.6-15.2)
[2017-09-02 07:43] LABS: HEMOGRAM NOTE RECHECKED
[2017-09-02 08:07] LABS: MD YES
[2017-09-02 08:09] LABS: EOS#(MANUAL) 0.08 x10^3/uL (0.0-0.4); EOS% (MANUAL) 3 % (1-7); HYPOCHROMIA 1+; LYMPH#(MANUAL) 0.53 x10^3/uL (1-3.4); LYMPHS% (MANUAL) 21 % (22-44); MICROCYTOSIS 1+; MONOS% (MANUAL) 12 % (2-9); SEGS% (MANUAL) 64 % (42-75)
[2017-09-02 08:10] LABS: ANISOCYTOSIS 2+; OVALOCYTES 1+; POLYCHROMASIA 1+
[2017-09-02 08:12] LABS: TEAR DROPS 1+
[2017-09-02 08:13] LABS: <PLATELET ESTIMATE> ADEQUATE; LARGE PLATELETS 1+
[2017-09-02] MEDS: SODIUM CHLORIDE 0.9% 1,000 ML IV SCH ×2 (08:15→18:38)
[2017-09-02] MEDS: PANTOPRAZOLE 80 MG in SODIUM CHLORIDE 0.9% 100 ML IV SCH ×2 (08:54→20:16)
[2017-09-02] MEDS ORDERED: SILVER NITRATE STICK TP ONE (10:00)
[2017-09-02] MEDS ORDERED: PANTOPRAZOLE 80 MG in SODIUM CHLORIDE 0.9% 100 ML IV SCH (18:30)
[2017-09-03] VITALS (8 sets, daily range): BP systolic 94–117; BP diastolic 43–66
[2017-09-03 05:26] LABS: BILIRUBIN, DIRECT 0.5 mg/dL (0.1-0.2)
[2017-09-03 05:27] LABS: BILIRUBIN,INDIRECT 1.9 mg/dL (0.0-2.0); BILIRUBIN,TOTAL 2.4 mg/dL (0.2-1.0)
[2017-09-03] MEDS: PANTOPRAZOLE 80 MG in SODIUM CHLORIDE 0.9% 100 ML IV SCH (06:36)
[2017-09-03] MEDS: SODIUM CHLORIDE 0.9% 1,000 ML IV SCH ×2 (06:36→19:36)
[2017-09-03] MEDS ORDERED: MIDAZOLAM 1 MG/ML, 5ML ONE (07:42)
[2017-09-03] MEDS ORDERED: FENTANYL PF 100 MCG/2ML ONE (07:42)
[2017-09-03] MEDS: OMEPRAZOLE 20 MG CAPSULE.DR PO SCH (17:18)
[2017-09-04 01:12] VITALS: BP 103/62
[2017-09-04] MEDS: SODIUM CHLORIDE 0.9% 1,000 ML IV SCH (04:23)
[2017-09-04 05:53] LABS: MEAN CORPUSCULAR HEMOGLOBIN 25.4 pg (27.0-34.8); MEAN CORPUSCULAR HGB CONC 32.9 g/dL (32.4-35.8); MEAN CORPUSCULAR VOLUME 77.3 fL (80-100); MEAN PLATELET VOLUME 10.7 fL (7.4-10.4); PLATELET COUNT 110 x10^3/uL (130-400); RED BLOOD COUNT 3.07 x10^6/uL (3.82-5.3); RED CELL DISTRIBUTION WIDTH 26.6 % (9.6-15.2)
[2017-09-04 06:20] LABS: ANISOCYTOSIS 2+; MD MORPH REVIEW ONLY; MICROCYTOSIS 1+
[2017-09-04 06:21] LABS: <PLATELET ESTIMATE> ADEQUATE; OVALOCYTES 1+; POLYCHROMASIA 1+; SCHISTOCYTES 1+
[2017-09-04 06:22] LABS: <PLT MORPHOLOGY> NORMAL PLT MORPH
[2017-09-04 06:23] LABS: BASOPHILS # (AUTO) 0.01 x10^3/uL (0-0.1); BASOPHILS % (AUTO) 1 % (0-1); EOSINOPHILS # (AUTO) 0.11 x10^3/uL (0-0.4); EOSINOPHILS % (AUTO) 6 % (1-7); LYMPHOCYTES # (AUTO) 0.48 x10^3/uL (1-3.4); LYMPHOCYTES % (AUTO) 24 % (22-44); MONOCYTES # (AUTO) 0.22 x10^3/uL (0.2-0.8); MONOCYTES % (AUTO) 11 % (2-9); NEUTROPHILS # (AUTO) 1.21 x10^3/uL (1.8-6.8); NEUTROPHILS % (AUTO) 59 % (42-75); TEAR DROPS 1+
[2017-09-04 08:12] VITALS: BP 102/54
[2017-09-04] MEDS: OMEPRAZOLE 20 MG CAPSULE.DR PO SCH (08:19)
[2017-09-04] MEDS ORDERED: OMEP-110 PO (11:08)
[2017-09-04] MEDS ORDERED: ACET325T14 PO (11:08)
[2017-09-04] MEDS ORDERED: ACET-76 PO (12:43)
[2017-09-04 14:43] VITALS: BP 109/63
== END 2017-09-04 15:15 | disposition home or self-care (01) | DRG 377 ==
LOC: ED 19:18 → EDIP 19:40 → 4EST 21:06
PROVIDERS: ADMIT Hospitalist; ATTEND Internal Medicine
PROC: 30233N1 Transfusion of Nonautologous Red Blood Cells into Peripheral Vein, Percutaneous Approach (ICD-10-PCS; principal; 2017-09-01)
PROC: 0DJ08ZZ Inspection of Upper Intestinal Tract, Via Natural or Artificial Opening Endoscopic (ICD-10-PCS; 2017-09-03)
PROC: 0DJD8ZZ Inspection of Lower Intestinal Tract, Via Natural or Artificial Opening Endoscopic (ICD-10-PCS; 2017-09-03)
DX: K25.4 Chronic or unspecified gastric ulcer with hemorrhage (principal); N17.0 Acute kidney failure with tubular necrosis; E43 Unspecified severe protein-calorie malnutrition; E87.2 Acidosis; I82.890 Acute embolism and thrombosis of other specified veins; E11.22 Type 2 diabetes mellitus with diabetic chronic kidney disease; C18.9 Malignant neoplasm of colon, unspecified; C73 Malignant neoplasm of thyroid gland; E44.0 Moderate protein-calorie malnutrition; E87.1 Hypo-osmolality and hyponatremia; D62 Acute posthemorrhagic anemia; E66.9 Obesity, unspecified; E89.0 Postprocedural hypothyroidism; G89.29 Other chronic pain; I12.9 Hypertensive chronic kidney disease with stage 1 through stage 4 chronic kidney disease, or unspecified chronic kidney disease; N18.3 Chronic kidney disease, stage 3 (moderate); I85.01 Esophageal varices with bleeding; R00.0 Tachycardia, unspecified; D12.6 Benign neoplasm of colon, unspecified; E80.6 Other disorders of bilirubin metabolism; Z68.34 Body mass index [BMI] 34.0-34.9, adult; Z88.1 Allergy status to other antibiotic agents; Z91.040 Latex allergy status; Z88.5 Allergy status to narcotic agent; Z88.0 Allergy status to penicillin; Z88.2 Allergy status to sulfonamides; Z91.048 Other nonmedicinal substance allergy status; Z93.2 Ileostomy status; Z83.3 Family history of diabetes mellitus; Z82.3 Family history of stroke; Z80.52 Family history of malignant neoplasm of bladder; Z90.49 Acquired absence of other specified parts of digestive tract; Z93.3 Colostomy status
CPT/HCPCS: 36415; 36430; 80053; 81003; 82247; 82248; 82436; 82570; 83010; 84133; 84300; 85014; 85018; 85025; 85610; 85730; 86850; 86900; 86923; 96374; 99152; 99153; J2250; J3010; C9113; J7030; P9016

== ENCOUNTER 2017-10-07 16:09 | Inpatient (IN) | payer MEDICARE, OTHER ==
[~2017-10-07] VITALS: Ht 177.8 cm; Wt 106.3 kg
[2017-10-07] VITALS (9 sets, daily range): BP systolic 95–126; BP diastolic 30–76
[~2017-10-07 16:09] MED LIST changes: +ACET-76 PO; +ACET325T14 PO
[2017-10-07 16:54] LABS: MD YES; MEAN CORPUSCULAR HEMOGLOBIN 23.5 pg (27.0-34.8); MEAN CORPUSCULAR VOLUME 73.5 fL (80-100); PLATELET COUNT 144 x10^3/uL (130-400); RED BLOOD COUNT 2.45 x10^6/uL (3.82-5.3); RED CELL DISTRIBUTION WIDTH 24.3 % (9.6-15.2)
[2017-10-07 16:59] LABS: INTERNATIONAL NORMALIZED RATIO 1.24 (0.93-1.1); PROTHROMBIN TIME 12.7 Seconds (9.6-11.5)
[2017-10-07] MEDS ORDERED: SODIUM CHLORIDE 0.9% 1,000ML IVBOLUS ONE (17:00)
[2017-10-07] MEDS ORDERED: SODIUM CHLORIDE FLUSH 10ML SYR IVF ONE (17:00)
[2017-10-07 17:02] LABS: ALANINE AMINOTRANSFERASE 24 U/L (12-78); ALBUMIN 2.6 g/dL (3.4-5.0); ANION GAP 9 mmol/L (5-15); CALCIUM 7.7 mg/dL (8.5-10.1); CHLORIDE 107 mmol/L (98-107); CREATININE 2.01 mg/dL (0.55-1.02)
[2017-10-07 17:04] LABS: ALKALINE PHOSPHATASE 114 U/L (45-117); BILIRUBIN,TOTAL 0.7 mg/dL (0.2-1.0); TOTAL PROTEIN 5.2 g/dL (6.4-8.2)
[2017-10-07 17:19] LABS: EOS#(MANUAL) 0.06 x10^3/uL (0.0-0.4); EOS% (MANUAL) 1 % (1-7); LYMPHS% (MANUAL) 12 % (22-44); MONOS#(MANUAL) 0.17 x10^3/uL (0.3-2.7); MONOS% (MANUAL) 3 % (2-9); SEG#(MANUAL) 4.87 x10^3/uL (1.8-6.8); SEGS% (MANUAL) 84 % (42-75)
[2017-10-07 17:24] LABS: MICROCYTOSIS 2+
[2017-10-07 17:25] LABS: OVALOCYTES 1+; SCHISTOCYTES 1+
[2017-10-07 17:28] LABS: POLYCHROMASIA 1+
[2017-10-07 17:29] LABS: ACANTHOCYTES 1+; HYPOCHROMIA 2+
[2017-10-07] MEDS ORDERED: OMEP-110 PO (17:29)
[2017-10-07 17:30] LABS: <PLATELET ESTIMATE> ADEQUATE; LARGE PLATELETS 1+
[2017-10-07] MEDS ORDERED: PANTOPRAZOLE 80 MG in SODIUM CHLORIDE 0.9% 50 ML IVPB ONE (17:40)
[2017-10-07] MEDS ORDERED: OCTREOTIDE 500 MCG in SODIUM CHLORIDE 0.9% 249 ML IV PRN (18:00)
[2017-10-07] MEDS ORDERED: OCTREOTIDE 100MCG/ML, 1ML (0.1MG/ML) IV ONE (18:00)
[2017-10-07] MEDS: PANTOPRAZOLE 80 MG in SODIUM CHLORIDE 0.9% 100 ML IV SCH (18:29)
[2017-10-07] MEDS ORDERED: OCTREOTIDE 100MCG/ML, 1ML (0.1MG/ML) ONE (18:56)
[2017-10-07] MEDS ORDERED: SODIUM CHLORIDE 0.9% 1,000 ML IV SCH (19:58)
[2017-10-07] MEDS: OCTREOTIDE 500 MCG in SODIUM CHLORIDE 0.9% 249 ML IV SCH (20:00)
[2017-10-07] MEDS ORDERED: ACETAMINOPHEN 325 MG TABLET PO PRN (20:00)
[2017-10-07] MEDS ORDERED: ONDANSETRON 2MG/ML, 2ML IVPush PRN (20:00)
[2017-10-07] MEDS ORDERED: SILVER NITRATE STICK TP ONE ×2 (20:27→20:30)
[2017-10-08] MEDS: PANTOPRAZOLE 80 MG in SODIUM CHLORIDE 0.9% 100 ML IV SCH ×3 (00:15→14:25)
[2017-10-08] MEDS: OCTREOTIDE 500 MCG in SODIUM CHLORIDE 0.9% 249 ML IV SCH ×2 (05:37→14:25)
[2017-10-08 06:04] LABS: ALANINE AMINOTRANSFERASE 22 U/L (12-78); ALBUMIN 2.1 g/dL (3.4-5.0); ANION GAP 7 mmol/L (5-15); CALCIUM 7.2 mg/dL (8.5-10.1); CHLORIDE 110 mmol/L (98-107); CREATININE 1.83 mg/dL (0.55-1.02)
[2017-10-08 06:07] LABS: ALKALINE PHOSPHATASE 80 U/L (45-117); BILIRUBIN,TOTAL 2.1 mg/dL (0.2-1.0); TOTAL PROTEIN 4.2 g/dL (6.4-8.2)
[2017-10-08 06:08] LABS: INTERNATIONAL NORMALIZED RATIO 1.3 (0.93-1.1); PROTHROMBIN TIME 13.3 Seconds (9.6-11.5)
[2017-10-08 06:23] LABS: MD YES; MEAN CORPUSCULAR HEMOGLOBIN 25.5 pg (27.0-34.8); MEAN CORPUSCULAR HGB CONC 32.9 g/dL (32.4-35.8); MEAN CORPUSCULAR VOLUME 77.4 fL (80-100); MEAN PLATELET VOLUME 9.4 fL (7.4-10.4); PLATELET COUNT 60 x10^3/uL (130-400); RED BLOOD COUNT 2.34 x10^6/uL (3.82-5.3); RED CELL DISTRIBUTION WIDTH 23.1 % (9.6-15.2)
[2017-10-08 07:06] LABS: BASOS#(MANUAL) 0.04 x10^3/uL (0-0.1); BASOS% (MANUAL) 2 % (0-1); LYMPH#(MANUAL) 0.53 x10^3/uL (1-3.4); LYMPHS% (MANUAL) 28 % (22-44); MONOS#(MANUAL) 0.19 x10^3/uL (0.3-2.7); MONOS% (MANUAL) 10 % (2-9); SEG#(MANUAL) 1.14 x10^3/uL (1.8-6.8); SEGS% (MANUAL) 60 % (42-75)
[2017-10-08 07:07] LABS: HYPOCHROMIA 2+; MICROCYTOSIS 2+; OVALOCYTES 1+; SCHISTOCYTES 1+
[2017-10-08 07:08] LABS: <PLATELET ESTIMATE> DECREASED; <PLT MORPHOLOGY> NORMAL PLT MORPH; TOXIC GRAN 1+
[2017-10-08] MEDS ORDERED: PANTOPRAZOLE 40 MG IV IVPush SCH (07:30)
[2017-10-08 09:30] VITALS: BP 103/34
[2017-10-08 10:06] VITALS: BP 102/34
[2017-10-08 12:10] VITALS: BP 100/41
[2017-10-08 12:20] VITALS: BP 117/48
[2017-10-08 12:52] VITALS: BP 99/71
[2017-10-08 15:34] VITALS: BP 123/74
[2017-10-09] MEDS: OCTREOTIDE 500 MCG in SODIUM CHLORIDE 0.9% 249 ML IV SCH ×3 (01:01→22:29)
[2017-10-09] MEDS: PANTOPRAZOLE 80 MG in SODIUM CHLORIDE 0.9% 100 ML IV SCH ×2 (01:01→10:36)
[2017-10-09 05:30] LABS: MEAN CORPUSCULAR HEMOGLOBIN 26.4 pg (27.0-34.8); MEAN PLATELET VOLUME 9.8 fL (7.4-10.4); PLATELET COUNT 56 x10^3/uL (130-400); RED BLOOD COUNT 2.54 x10^6/uL (3.82-5.3); RED CELL DISTRIBUTION WIDTH 22.4 % (9.6-15.2)
[2017-10-09 05:39] LABS: ANION GAP 7 mmol/L (5-15); CALCIUM 6.8 mg/dL (8.5-10.1); CHLORIDE 112 mmol/L (98-107); CREATININE 1.64 mg/dL (0.55-1.02)
[2017-10-09 06:12] LABS: MD YES
[2017-10-09 06:15] LABS: BASOS#(MANUAL) 0.02 x10^3/uL (0-0.1); BASOS% (MANUAL) 1 % (0-1); EOS#(MANUAL) 0.09 x10^3/uL (0.0-0.4); EOS% (MANUAL) 4 % (1-7); LYMPH#(MANUAL) 0.44 x10^3/uL (1-3.4); LYMPHS% (MANUAL) 20 % (22-44); MONOS#(MANUAL) 0.15 x10^3/uL (0.3-2.7); MONOS% (MANUAL) 7 % (2-9); SEGS% (MANUAL) 68 % (42-75)
[2017-10-09 06:17] LABS: ANISOCYTOSIS 2+; HYPOCHROMIA 2+; MICROCYTOSIS 1+; OVALOCYTES 1+; SCHISTOCYTES 1+
[2017-10-09 06:18] LABS: <PLATELET ESTIMATE> DECREASED; <PLT MORPHOLOGY> NORMAL PLT MORPH
[2017-10-09 08:44] VITALS: BP 108/44
[2017-10-09 11:04] VITALS: BP 113/47
[2017-10-09 11:20] VITALS: BP 119/51
[2017-10-09 12:41] VITALS: BP 113/63
[2017-10-09 20:08] VITALS: BP 138/66
[2017-10-09] MEDS: PANTOPRAZOLE 40 MG IV IVPush SCH (20:24)
[2017-10-10 01:43] VITALS: BP 105/51
[2017-10-10] MEDS: PANTOPRAZOLE 40 MG IV IVPush SCH (09:00)
[2017-10-10 09:17] VITALS: BP 110/50
[2017-10-10 10:36] LABS: MEAN CORPUSCULAR HEMOGLOBIN 27.5 pg (27.0-34.8); MEAN CORPUSCULAR HGB CONC 33.2 g/dL (32.4-35.8); MEAN CORPUSCULAR VOLUME 83.1 fL (80-100); MEAN PLATELET VOLUME 9.9 fL (7.4-10.4); PLATELET COUNT 51 x10^3/uL (130-400); RED BLOOD COUNT 2.96 x10^6/uL (3.82-5.3); RED CELL DISTRIBUTION WIDTH 20.9 % (9.6-15.2)
[2017-10-10 10:43] LABS: MD YES
[2017-10-10 11:19] LABS: BAND#(MANUAL) 0.01 x10^3/uL; BANDS%(MANUAL) 1 % (0-7); BASOS#(MANUAL) 0.01 x10^3/uL (0-0.1); BASOS% (MANUAL) 1 % (0-1); EOS#(MANUAL) 0.04 x10^3/uL (0.0-0.4); EOS% (MANUAL) 3 % (1-7); LYMPH#(MANUAL) 0.27 x10^3/uL (1-3.4); LYMPHS% (MANUAL) 19 % (22-44); MONOS% (MANUAL) 7 % (2-9); REACTIVE LYMPHS # (MANUAL) 0.03 x10^3/uL (0-0); REACTIVE LYMPHS % (MANUAL) 2 % (0-0); SEG#(MANUAL) 0.94 x10^3/uL (1.8-6.8); SEGS% (MANUAL) 67 % (42-75)
[2017-10-10 11:20] LABS: ANISOCYTOSIS 2+; HYPOCHROMIA 1+; OVALOCYTES 1+; SCHISTOCYTES 1+
[2017-10-10 11:21] LABS: <PLATELET ESTIMATE> DECREASED; LARGE PLATELETS 1+; POLYCHROMASIA 1+
== END 2017-10-10 15:48 | disposition home or self-care (01) | DRG 393 ==
LOC: ED 18:20 → SUATTDRO 19:44 → EDIP 19:58 → CCU 20:49 → 3NW 10-09 13:36
PROVIDERS: ADMIT Hospitalist; ATTEND Hospitalist
PROC: 30233N1 Transfusion of Nonautologous Red Blood Cells into Peripheral Vein, Percutaneous Approach (ICD-10-PCS; principal; 2017-10-07)
PROC: 0W3P8ZZ Control Bleeding in Gastrointestinal Tract, Via Natural or Artificial Opening Endoscopic (ICD-10-PCS; 2017-10-07)
DX: K94.11 Enterostomy hemorrhage (principal); E43 Unspecified severe protein-calorie malnutrition; I81 Portal vein thrombosis; K25.4 Chronic or unspecified gastric ulcer with hemorrhage; D62 Acute posthemorrhagic anemia; E87.2 Acidosis; D68.9 Coagulation defect, unspecified; I85.00 Esophageal varices without bleeding; K74.69 Other cirrhosis of liver; K75.81 Nonalcoholic steatohepatitis (NASH); D12.6 Benign neoplasm of colon, unspecified; K57.90 Diverticulosis of intestine, part unspecified, without perforation or abscess without bleeding; I95.9 Hypotension, unspecified; D63.8 Anemia in other chronic diseases classified elsewhere; D69.6 Thrombocytopenia, unspecified; E11.22 Type 2 diabetes mellitus with diabetic chronic kidney disease; E66.9 Obesity, unspecified; E89.0 Postprocedural hypothyroidism; I12.9 Hypertensive chronic kidney disease with stage 1 through stage 4 chronic kidney disease, or unspecified chronic kidney disease; D73.5 Infarction of spleen; N18.3 Chronic kidney disease, stage 3 (moderate); Z85.850 Personal history of malignant neoplasm of thyroid; Z68.33 Body mass index [BMI] 33.0-33.9, adult; Z80.52 Family history of malignant neoplasm of bladder; Z85.038 Personal history of other malignant neoplasm of large intestine; Z87.11 Personal history of peptic ulcer disease; Z90.49 Acquired absence of other specified parts of digestive tract; Z88.5 Allergy status to narcotic agent; Z88.0 Allergy status to penicillin; Z88.2 Allergy status to sulfonamides; Z88.8 Allergy status to other drugs, medicaments and biological substances; Z88.6 Allergy status to analgesic agent; Z88.1 Allergy status to other antibiotic agents; Z91.040 Latex allergy status
CPT/HCPCS: 36415; 36430; 80048; 80053; 82607; 82728; 83540; 83550; 83735; 84100; 85018; 85025; 85610; 85730; 86850; 86900; 86923; 87081; 96361; 96374; J2354; 92523-GN; C9113; J7030; J7050; P9016

== ENCOUNTER 2017-11-02 20:36 | Inpatient (IN) | payer MEDICARE, OTHER ==
[~2017-11-02] VITALS: Ht 177.8 cm; Wt 108.5 kg
[2017-11-02 21:29] LABS: ALANINE AMINOTRANSFERASE 34 U/L (12-78); ALBUMIN 2.4 g/dL (3.4-5.0); ANION GAP 11 mmol/L (5-15); CALCIUM 7.8 mg/dL (8.5-10.1); CHLORIDE 103 mmol/L (98-107); CREATININE 2.26 mg/dL (0.55-1.02)
[2017-11-02 21:31] LABS: ALKALINE PHOSPHATASE 101 U/L (45-117); BILIRUBIN,TOTAL 1.1 mg/dL (0.2-1.0); TOTAL PROTEIN 4.9 g/dL (6.4-8.2)
[2017-11-02] MEDS ORDERED: SODIUM CHLORIDE 0.9% 1,000ML IVBOLUS ONE (22:00)
[2017-11-02] MEDS ORDERED: SODIUM CHLORIDE FLUSH 10ML SYR IVF ONE (22:00)
[2017-11-02 22:33] LABS: BASOPHILS # (AUTO) 0.02 x10^3/uL (0-0.1); BASOPHILS % (AUTO) 1 % (0-1); EOSINOPHILS # (AUTO) 0.06 x10^3/uL (0-0.4); EOSINOPHILS % (AUTO) 2 % (1-7); INTERNATIONAL NORMALIZED RATIO 1.19 (0.93-1.1); LYMPHOCYTES # (AUTO) 0.72 x10^3/uL (1-3.4); LYMPHOCYTES % (AUTO) 23 % (22-44); MD NO; MEAN CORPUSCULAR HEMOGLOBIN 24.2 pg (27.0-34.8); MEAN CORPUSCULAR VOLUME 75.6 fL (80-100); MEAN PLATELET VOLUME 9.4 fL (7.4-10.4); MONOCYTES # (AUTO) 0.35 x10^3/uL (0.2-0.8); MONOCYTES % (AUTO) 11 % (2-9); NEUTROPHILS # (AUTO) 1.94 x10^3/uL (1.8-6.8); NEUTROPHILS % (AUTO) 63 % (42-75); PLATELET COUNT 130 x10^3/uL (130-400); PROTHROMBIN TIME 12.3 Seconds (9.6-11.5); RED BLOOD COUNT 1.94 x10^6/uL (3.82-5.3); RED CELL DISTRIBUTION WIDTH 24.2 % (9.6-15.2)
[2017-11-02 23:35] VITALS: BP 117/58
[2017-11-02 23:49] VITALS: BP 123/55
[2017-11-02 23:55] VITALS: BP 113/57
[2017-11-03] VITALS (24 sets, daily range): BP systolic 94–127; BP diastolic 36–49
[2017-11-03] MEDS ORDERED: PANTOPRAZOLE 80 MG in SODIUM CHLORIDE 0.9% 50 ML IV ONE (03:30)
[2017-11-03] MEDS ORDERED: hydrALAzine 20 MG/ML, 1ML IVPush PRN (03:30)
[2017-11-03] MEDS ORDERED: ONDANSETRON 2MG/ML, 2ML IVPush PRN (03:30)
[2017-11-03] MEDS ORDERED: BISACODYL 10 MG SUPP PR PRN (03:30)
[2017-11-03] MEDS ORDERED: morphine SULFATE 10 MG/ML, 1ML IVPush PRN (03:30)
[2017-11-03] MEDS ORDERED: PROMETHAZINE 25 MG/ML, 1ML IM PRN (03:30)
[2017-11-03] MEDS ORDERED: POLYETHYLENE GLYCOL 17 GM PACKET PO PRN (03:30)
[2017-11-03] MEDS ORDERED: ACETAMINOPHEN 325 MG TABLET PO PRN (03:30)
[2017-11-03] MEDS ORDERED: OXYcodone IR 5MG TABLET PO PRN (03:30)
[2017-11-03] MEDS ORDERED: ONDANSETRON ODT 4 MG PO PRN (03:30)
[2017-11-03] MEDS ORDERED: POTASSIUM CHLORIDE 40 MEQ in SODIUM CHLORIDE 0.9% 500 ML IV ONE (03:30)
[2017-11-03] MEDS ORDERED: DOCUSATE 100 MG CAPSULE PO PRN (03:30)
[2017-11-03] MEDS: PANTOPRAZOLE 80 MG in SODIUM CHLORIDE 0.9% 100 ML IV SCH ×2 (04:10→17:14)
[2017-11-03 06:49] LABS: MICROSCOPIC AUTO
[2017-11-03 06:54] LABS: CULTURE INDICATED? YES
[2017-11-03] MEDS: SODIUM CHLORIDE 0.9% 1,000 ML IV SCH ×2 (08:29→18:39)
[2017-11-03 10:56] LABS: ALANINE AMINOTRANSFERASE 27 U/L (12-78); ALBUMIN 2.2 g/dL (3.4-5.0); ANION GAP 10 mmol/L (5-15); CALCIUM 7.3 mg/dL (8.5-10.1); CHLORIDE 108 mmol/L (98-107); CHOLESTEROL, TOTAL 58 mg/dL (140-239)
[2017-11-03 11:04] LABS: ALKALINE PHOSPHATASE 76 U/L (45-117); BILIRUBIN,TOTAL 3.6 mg/dL (0.2-1.0); CHOL/HDL RATIO 1.3; CREATININE 1.79 mg/dL (0.55-1.02); FREE T4 (FREE THYROXINE) 1.17 ng/dL (0.76-1.46); HDL CHOL % 79 % (28-40); HDL CHOLESTEROL (DIRECT) 46 mg/dL (40-60); TOTAL PROTEIN 4.2 g/dL (6.4-8.2); TRIGLYCERIDES 49 mg/dL (50-200); VLDL CHOLESTEROL 10 mg/dL (0-25)
[2017-11-03 11:11] LABS: LDL CHOLESTEROL,CALCULATED < 5 mg/dL (54-169); LDL/HDL RATIO 0.1 (0.5-3.0)
[2017-11-03 15:17] LABS: HEMOGLOBIN A1C 4.9 % (4.2-6.3)
[2017-11-03] MEDS: CEFTRIAXONE 2 GM in SODIUM CHLORIDE 0.9% 50 ML IV SCH (19:51)
[2017-11-03] MEDS: OCTREOTIDE 500 MCG in SODIUM CHLORIDE 0.9% 249 ML IV SCH (19:51)
[2017-11-03] MEDS: RIFAXIMIN 550 MG TABLET PO SCH (20:23)
[2017-11-04 04:04] VITALS: BP 101/46
[2017-11-04] MEDS: OCTREOTIDE 500 MCG in SODIUM CHLORIDE 0.9% 249 ML IV SCH ×2 (06:04→17:59)
[2017-11-04 06:07] LABS: ALBUMIN 2.3 g/dL (3.4-5.0); ANION GAP 7 mmol/L (5-15); CALCIUM 7.1 mg/dL (8.5-10.1); CHLORIDE 110 mmol/L (98-107)
[2017-11-04 06:12] LABS: ALANINE AMINOTRANSFERASE 31 U/L (12-78); ALKALINE PHOSPHATASE 83 U/L (45-117); TOTAL PROTEIN 4.7 g/dL (6.4-8.2)
[2017-11-04 06:15] LABS: MEAN CORPUSCULAR HEMOGLOBIN 27.2 pg (27.0-34.8); MEAN CORPUSCULAR HGB CONC 33.3 g/dL (32.4-35.8); MEAN CORPUSCULAR VOLUME 81.9 fL (80-100); MEAN PLATELET VOLUME 10.1 fL (7.4-10.4); PLATELET COUNT 96 x10^3/uL (130-400); RED BLOOD COUNT 3.44 x10^6/uL (3.82-5.3); RED CELL DISTRIBUTION WIDTH 19.9 % (9.6-15.2)
[2017-11-04 07:00] LABS: MD YES
[2017-11-04 07:06] LABS: ANISOCYTOSIS 2+; BASOS#(MANUAL) 0.08 x10^3/uL (0-0.1); BASOS% (MANUAL) 4 % (0-1); HYPOCHROMIA 1+; LYMPH#(MANUAL) 0.38 x10^3/uL (1-3.4); LYMPHS% (MANUAL) 18 % (22-44); MONOS#(MANUAL) 0.08 x10^3/uL (0.3-2.7); MONOS% (MANUAL) 4 % (2-9); OVALOCYTES 1+; SCHISTOCYTES 1+; SEG#(MANUAL) 1.55 x10^3/uL (1.8-6.8); SEGS% (MANUAL) 74 % (42-75)
[2017-11-04 07:09] LABS: <PLATELET ESTIMATE> DECREASED; <PLT MORPHOLOGY> NORMAL PLT MORPH
[2017-11-04 07:31] VITALS: BP 119/54
[2017-11-04] MEDS: RIFAXIMIN 550 MG TABLET PO SCH ×2 (11:03→21:54)
[2017-11-04 14:01] VITALS: BP 113/47
[2017-11-04] MEDS: SODIUM CHLORIDE 0.9% 1,000 ML IV SCH (15:28)
[2017-11-04] MEDS: CEFTRIAXONE 2 GM in SODIUM CHLORIDE 0.9% 50 ML IV SCH (17:05)
[2017-11-04 20:51] VITALS: BP 118/52
[2017-11-05 00:56] VITALS: BP 121/55
[2017-11-05] MEDS: OCTREOTIDE 500 MCG in SODIUM CHLORIDE 0.9% 249 ML IV SCH ×3 (01:40→23:33)
[2017-11-05] MEDS: SODIUM CHLORIDE 0.9% 1,000 ML IV SCH ×3 (01:41→21:01)
[2017-11-05 06:12] LABS: MEAN CORPUSCULAR HEMOGLOBIN 27.3 pg (27.0-34.8); MEAN CORPUSCULAR HGB CONC 33.4 g/dL (32.4-35.8); MEAN CORPUSCULAR VOLUME 81.9 fL (80-100); MEAN PLATELET VOLUME 9.5 fL (7.4-10.4); PLATELET COUNT 71 x10^3/uL (130-400); RED BLOOD COUNT 3.13 x10^6/uL (3.82-5.3); RED CELL DISTRIBUTION WIDTH 20.4 % (9.6-15.2)
[2017-11-05 06:15] LABS: ALBUMIN 2.2 g/dL (3.4-5.0); ANION GAP 9 mmol/L (5-15); CHLORIDE 111 mmol/L (98-107); CREATININE 1.46 mg/dL (0.55-1.02)
[2017-11-05 06:43] LABS: MD YES
[2017-11-05 06:47] LABS: EOS#(MANUAL) 0.05 x10^3/uL (0.0-0.4); EOS% (MANUAL) 3 % (1-7); MONOS#(MANUAL) 0.09 x10^3/uL (0.3-2.7); MONOS% (MANUAL) 5 % (2-9)
[2017-11-05 06:48] LABS: ANISOCYTOSIS 2+; BASOS#(MANUAL) 0.04 x10^3/uL (0-0.1); BASOS% (MANUAL) 2 % (0-1); HYPOCHROMIA 1+; LYMPH#(MANUAL) 0.52 x10^3/uL (1-3.4); LYMPHS% (MANUAL) 29 % (22-44); OVALOCYTES 1+; SEGS% (MANUAL) 61 % (42-75)
[2017-11-05 06:49] LABS: <PLATELET ESTIMATE> DECREASED; SCHISTOCYTES 1+
[2017-11-05 06:50] LABS: <PLT MORPHOLOGY> NORMAL PLT MORPH
[2017-11-05 08:45] VITALS: BP 112/45
[2017-11-05] MEDS: RIFAXIMIN 550 MG TABLET PO SCH ×2 (09:14→21:00)
[2017-11-05 14:51] VITALS: BP 121/61
[2017-11-05] MEDS: CEFTRIAXONE 2 GM in SODIUM CHLORIDE 0.9% 50 ML IV SCH (18:07)
[2017-11-05 20:57] VITALS: BP 116/57
[2017-11-06 05:12] LABS: MEAN CORPUSCULAR HEMOGLOBIN 28.1 pg (27.0-34.8); MEAN CORPUSCULAR HGB CONC 33.6 g/dL (32.4-35.8); MEAN CORPUSCULAR VOLUME 83.4 fL (80-100); RED CELL DISTRIBUTION WIDTH 20.2 % (9.6-15.2)
[2017-11-06 05:25] LABS: ALBUMIN 2.3 g/dL (3.4-5.0); ANION GAP 6 mmol/L (5-15); CALCIUM 7.1 mg/dL (8.5-10.1); CHLORIDE 113 mmol/L (98-107)
[2017-11-06 05:27] LABS: CREATININE 1.28 mg/dL (0.55-1.02)
[2017-11-06 05:48] LABS: MD YES; MEAN PLATELET VOLUME 10.8 fL (7.4-10.4); PLATELET COUNT 65 x10^3/uL (130-400)
[2017-11-06 05:52] LABS: BASOS#(MANUAL) 0.03 x10^3/uL (0-0.1); BASOS% (MANUAL) 2 % (0-1); EOS#(MANUAL) 0.03 x10^3/uL (0.0-0.4); EOS% (MANUAL) 2 % (1-7); LYMPH#(MANUAL) 0.43 x10^3/uL (1-3.4); LYMPHS% (MANUAL) 25 % (22-44); MONOS#(MANUAL) 0.14 x10^3/uL (0.3-2.7); MONOS% (MANUAL) 8 % (2-9); SEG#(MANUAL) 1.07 x10^3/uL (1.8-6.8); SEGS% (MANUAL) 63 % (42-75)
[2017-11-06 05:53] LABS: <PLATELET ESTIMATE> DECREASED; ANISOCYTOSIS 2+; HYPOCHROMIA 1+; OVALOCYTES 1+; SCHISTOCYTES 1+
[2017-11-06 05:55] LABS: LARGE PLATELETS 1+
[2017-11-06 08:11] VITALS: BP 121/51
[2017-11-06] MEDS: RIFAXIMIN 550 MG TABLET PO SCH ×2 (08:20→20:39)
[2017-11-06] MEDS ORDERED: DIAZEPAM 5 MG/ML, 10ML VIAL IV ONE (09:00)
[2017-11-06] MEDS: SODIUM CHLORIDE 0.9% 1,000 ML IV SCH ×2 (09:09→20:00)
[2017-11-06] MEDS ORDERED: GADOBUTROL 10 MMOL/10 ML VIAL ONE (10:41)
[2017-11-06] MEDS: OCTREOTIDE IV SCH (10:48)
[2017-11-06] MEDS: SODIUM CHLORIDE 0.9% IV SCH (10:48)
[2017-11-06 16:34] VITALS: BP 109/53
[2017-11-06] MEDS: CEFTRIAXONE 2 GM in SODIUM CHLORIDE 0.9% 50 ML IV SCH (17:37)
[2017-11-06 19:49] VITALS: BP 114/50
[2017-11-07 00:13] VITALS: BP 117/53
[2017-11-07] MEDS: SODIUM CHLORIDE 0.9% 1,000 ML IV SCH (05:32)
[2017-11-07 07:45] VITALS: BP 116/54
[2017-11-07] MEDS: OCTREOTIDE IV SCH (08:30)
[2017-11-07] MEDS: SODIUM CHLORIDE 0.9% IV SCH (08:30)
[2017-11-07] MEDS: RIFAXIMIN 550 MG TABLET PO SCH (10:25)
== END 2017-11-07 14:26 | disposition home or self-care (01) | DRG 441 ==
LOC: ED 23:40 → EDIP 23:53 → 4WST 11-03 01:20
PROVIDERS: ADMIT Internal Medicine; ATTEND Hospitalist
PROC: 30233N1 Transfusion of Nonautologous Red Blood Cells into Peripheral Vein, Percutaneous Approach (ICD-10-PCS; principal; 2017-11-02)
DX: K76.6 Portal hypertension (principal); E43 Unspecified severe protein-calorie malnutrition; I81 Portal vein thrombosis; D62 Acute posthemorrhagic anemia; D61.818 Other pancytopenia; E87.1 Hypo-osmolality and hyponatremia; N18.4 Chronic kidney disease, stage 4 (severe); I13.0 Hypertensive heart and chronic kidney disease with heart failure and stage 1 through stage 4 chronic kidney disease, or unspecified chronic kidney disease; N39.0 Urinary tract infection, site not specified; I50.32 Chronic diastolic (congestive) heart failure; I82.890 Acute embolism and thrombosis of other specified veins; N17.9 Acute kidney failure, unspecified; K92.1 Melena; E11.22 Type 2 diabetes mellitus with diabetic chronic kidney disease; E66.9 Obesity, unspecified; E83.51 Hypocalcemia; E87.6 Hypokalemia; G89.29 Other chronic pain; I08.1 Rheumatic disorders of both mitral and tricuspid valves; K74.69 Other cirrhosis of liver; K75.81 Nonalcoholic steatohepatitis (NASH); Z79.899 Other long term (current) drug therapy; Z85.038 Personal history of other malignant neoplasm of large intestine; Z68.34 Body mass index [BMI] 34.0-34.9, adult; Z85.850 Personal history of malignant neoplasm of thyroid; Z87.891 Personal history of nicotine dependence; Z90.49 Acquired absence of other specified parts of digestive tract; Z93.2 Ileostomy status; Z93.3 Colostomy status
CPT/HCPCS: 36415; 36430; 74183; 80048; 80053; 80061; 81001; 82040; 83036; 83735; 84100; 84439; 84443; 85014; 85018; 85025; 85610; 85730; 86850; 86900; 86923; 87077; 87086; 87186; 93306; 96360; A9585; J0696; J2354; J3360; J3480; C9113; J7030; J7040; J7050; P9016

== ENCOUNTER 2018-01-12 12:52 | Observation (INO) | payer MEDICARE, OTHER ==
[2018-01-12] VITALS (14 sets, daily range): BP systolic 88–140; BP diastolic 29–72
[~2018-01-12] VITALS: Ht 175.3 cm; Wt 102.0 kg
[~2018-01-12 12:52] MED LIST changes: -POTA20PA PO; +POTA20PA31 PO
[2018-01-12 13:57] LABS: ANION GAP 12 mmol/L (5-15); CALCIUM 7.7 mg/dL (8.5-10.1); CHLORIDE 101 mmol/L (98-107); CREATININE 1.77 mg/dL (0.55-1.02)
[2018-01-12 14:13] LABS: MD YES; MEAN CORPUSCULAR HEMOGLOBIN 19.4 pg (27.0-34.8); MEAN CORPUSCULAR HGB CONC 30.9 g/dL (32.4-35.8); MEAN CORPUSCULAR VOLUME 62.8 fL (80-100); MEAN PLATELET VOLUME 9.4 fL (7.4-10.4); PLATELET COUNT 94 x10^3/uL (130-400); RED BLOOD COUNT 2.43 x10^6/uL (3.82-5.3); RED CELL DISTRIBUTION WIDTH 23.3 % (9.6-15.2)
[2018-01-12 14:35] LABS: BAND#(MANUAL) 0.02 x10^3/uL; EOS% (MANUAL) 2 % (1-7); LYMPH#(MANUAL) 0.33 x10^3/uL (1-3.4); LYMPHS% (MANUAL) 15 % (22-44); MONOS#(MANUAL) 0.11 x10^3/uL (0.3-2.7); MONOS% (MANUAL) 5 % (2-9); SEG#(MANUAL) 1.72 x10^3/uL (1.8-6.8); SEGS% (MANUAL) 78 % (42-75)
[2018-01-12 14:36] LABS: BASOS#(MANUAL) 0.02 x10^3/uL (0-0.1); BASOS% (MANUAL) 1 % (0-1); EOS#(MANUAL) 0.04 x10^3/uL (0.0-0.4)
[2018-01-12 14:41] LABS: ANISOCYTOSIS 2+; MICROCYTOSIS 2+; OVALOCYTES 2+; SCHISTOCYTES 1+; TEAR DROPS 1+
[2018-01-12 14:42] LABS: HYPOCHROMIA 1+; POLYCHROMASIA 1+
[2018-01-12 14:44] LABS: <PLATELET ESTIMATE> DECREASED; <PLT MORPHOLOGY> NORMAL PLT MORPH
[2018-01-12] MEDS ORDERED: DOCUSATE 100 MG CAPSULE PO PRN (17:00)
[2018-01-12] MEDS ORDERED: ACETAMINOPHEN 325 MG TABLET PO PRN (17:00)
[2018-01-12] MEDS ORDERED: ONDANSETRON ODT 4 MG PO PRN (17:00)
[2018-01-12] MEDS ORDERED: PHARMACY MAY ADJ FOR RENAL FX MC PRN (17:00)
[2018-01-12] MEDS: PANTOPRAZOLE 40 MG IV IVPush SCH (20:34)
[2018-01-13] VITALS (7 sets, daily range): BP systolic 96–123; BP diastolic 36–56
[2018-01-13] MEDS: PANTOPRAZOLE 40 MG IV IVPush SCH ×2 (00:16→13:00)
[2018-01-13] MEDS: SODIUM CHLORIDE 0.9% 1,000 ML IV SCH ×3 (00:25→20:53)
[2018-01-13 04:58] LABS: MEAN CORPUSCULAR HEMOGLOBIN 22.6 pg (27.0-34.8); MEAN CORPUSCULAR HGB CONC 32.3 g/dL (32.4-35.8); MEAN CORPUSCULAR VOLUME 69.9 fL (80-100); RED BLOOD COUNT 2.84 x10^6/uL (3.82-5.3); RED CELL DISTRIBUTION WIDTH 26.3 % (9.6-15.2)
[2018-01-13 05:12] LABS: ANION GAP 9 mmol/L (5-15); CALCIUM 7.5 mg/dL (8.5-10.1); CHLORIDE 105 mmol/L (98-107)
[2018-01-13 05:14] LABS: CREATININE 1.62 mg/dL (0.55-1.02)
[2018-01-13 05:53] LABS: MD YES
[2018-01-13 05:57] LABS: MEAN PLATELET VOLUME 9.3 fL (7.4-10.4); PLATELET COUNT 74 x10^3/uL (130-400)
[2018-01-13 06:01] LABS: ANISOCYTOSIS 2+; EOS#(MANUAL) 0.02 x10^3/uL (0.0-0.4); EOS% (MANUAL) 1 % (1-7); HYPOCHROMIA 1+; LYMPH#(MANUAL) 0.49 x10^3/uL (1-3.4); LYMPHS% (MANUAL) 29 % (22-44); MICROCYTOSIS 2+; MONOS#(MANUAL) 0.07 x10^3/uL (0.3-2.7); MONOS% (MANUAL) 4 % (2-9); NRBC % (MANUAL) 1 % (0-1); POLYCHROMASIA 1+; SEG#(MANUAL) 1.12 x10^3/uL (1.8-6.8); SEGS% (MANUAL) 66 % (42-75)
[2018-01-13 06:03] LABS: <PLATELET ESTIMATE> DECREASED; <PLT MORPHOLOGY> NORMAL PLT MORPH; OVALOCYTES 1+
[2018-01-13 06:06] LABS: SCHISTOCYTES 1+
[2018-01-13 06:09] LABS: SPHEROCYTES 1+
[2018-01-14] VITALS (9 sets, daily range): BP systolic 89–126; BP diastolic 38–63
[2018-01-14] MEDS: PANTOPRAZOLE 40 MG IV IVPush SCH ×2 (03:20→15:44)
[2018-01-14] MEDS: SODIUM CHLORIDE 0.9% 1,000 ML IV SCH (06:29)
[2018-01-14 17:41] LABS: ANION GAP 8 mmol/L (5-15); CALCIUM 7.5 mg/dL (8.5-10.1); CHLORIDE 110 mmol/L (98-107); CREATININE 1.59 mg/dL (0.55-1.02)
[2018-01-14 17:42] LABS: MEAN CORPUSCULAR HEMOGLOBIN 24.3 pg (27.0-34.8); MEAN CORPUSCULAR HGB CONC 32.6 g/dL (32.4-35.8); MEAN CORPUSCULAR VOLUME 74.7 fL (80-100); MEAN PLATELET VOLUME 9.5 fL (7.4-10.4); PLATELET COUNT 71 x10^3/uL (130-400); RED BLOOD COUNT 3.69 x10^6/uL (3.82-5.3); RED CELL DISTRIBUTION WIDTH 26.5 % (9.6-15.2)
[2018-01-14] MEDS ORDERED: OMEP-110 PO (17:49)
[2018-01-14 18:13] LABS: MD YES
[2018-01-14 18:17] LABS: ANISOCYTOSIS 2+; BAND#(MANUAL) 0.02 x10^3/uL; BANDS%(MANUAL) 1 % (0-7); BASOS#(MANUAL) 0.04 x10^3/uL (0-0.1); BASOS% (MANUAL) 2 % (0-1); EOS#(MANUAL) 0.05 x10^3/uL (0.0-0.4); EOS% (MANUAL) 3 % (1-7); HYPOCHROMIA 1+; LYMPH#(MANUAL) 0.43 x10^3/uL (1-3.4); LYMPHS% (MANUAL) 24 % (22-44); MICROCYTOSIS 1+; MONOS#(MANUAL) 0.13 x10^3/uL (0.3-2.7); MONOS% (MANUAL) 7 % (2-9); OVALOCYTES 1+; POLYCHROMASIA 1+; SEG#(MANUAL) 1.13 x10^3/uL (1.8-6.8); SEGS% (MANUAL) 63 % (42-75)
[2018-01-14 18:18] LABS: SCHISTOCYTES 1+; SPHEROCYTES 1+
[2018-01-14 18:19] LABS: <PLATELET ESTIMATE> DECREASED; <PLT MORPHOLOGY> NORMAL PLT MORPH
== END 2018-01-14 19:22 | disposition home or self-care (01) ==
LOC: ED 13:30 → EDIP 16:35 → 4WST 18:22
PROVIDERS: ADMIT Hospitalist; ATTEND Hospitalist
DX: D63.8 Anemia in other chronic diseases classified elsewhere (principal); E43 Unspecified severe protein-calorie malnutrition; I12.0 Hypertensive chronic kidney disease with stage 5 chronic kidney disease or end stage renal disease; E11.22 Type 2 diabetes mellitus with diabetic chronic kidney disease; N18.3 Chronic kidney disease, stage 3 (moderate); N17.9 Acute kidney failure, unspecified; I81 Portal vein thrombosis; I82.891 Chronic embolism and thrombosis of other specified veins; E66.9 Obesity, unspecified; E87.1 Hypo-osmolality and hyponatremia; Z85.50 Personal history of malignant neoplasm of unspecified urinary tract organ; Z79.01 Long term (current) use of anticoagulants; Z87.891 Personal history of nicotine dependence
CPT/HCPCS: 36415; 36430; 80048; 82040; 85014; 85018; 85025; 86850; 86900; 86923; 93005; 96374; 96376; 99285; C9113; G0378; J7030; P9016

== ENCOUNTER 2018-01-21 13:05 | Emergency (ER) | payer MEDICARE, OTHER ==
[2018-01-21] VITALS (9 sets, daily range): BP systolic 110–138; BP diastolic 38–84
[~2018-01-21] VITALS: Ht 177.8 cm; Wt 99.6 kg
[2018-01-21 13:56] LABS: ALBUMIN 2.7 g/dL (3.4-5.0); ANION GAP 12 mmol/L (5-15); CALCIUM 7.7 mg/dL (8.5-10.1); CHLORIDE 107 mmol/L (98-107); CREATININE 1.47 mg/dL (0.55-1.02); INTERNATIONAL NORMALIZED RATIO 1.19 (0.93-1.1); PROTHROMBIN TIME 12.2 Seconds (9.6-11.5)
[2018-01-21 14:35] LABS: MD YES; MEAN CORPUSCULAR HEMOGLOBIN 24.3 pg (27.0-34.8); MEAN CORPUSCULAR HGB CONC 32.5 g/dL (32.4-35.8); MEAN CORPUSCULAR VOLUME 74.6 fL (80-100); MEAN PLATELET VOLUME 9.3 fL (7.4-10.4); PLATELET COUNT 82 x10^3/uL (130-400); RED BLOOD COUNT 3.12 x10^6/uL (3.82-5.3); RED CELL DISTRIBUTION WIDTH 27.6 % (9.6-15.2)
[2018-01-21 14:38] LABS: ANISOCYTOSIS 2+; BASOS#(MANUAL) 0.03 x10^3/uL (0-0.1); BASOS% (MANUAL) 1 % (0-1); EOS#(MANUAL) 0.09 x10^3/uL (0.0-0.4); EOS% (MANUAL) 3 % (1-7); LYMPH#(MANUAL) 0.51 x10^3/uL (1-3.4); LYMPHS% (MANUAL) 17 % (22-44); MICROCYTOSIS 1+; MONOS#(MANUAL) 0.36 x10^3/uL (0.3-2.7); MONOS% (MANUAL) 12 % (2-9); SEG#(MANUAL) 2.01 x10^3/uL (1.8-6.8); SEGS% (MANUAL) 67 % (42-75)
[2018-01-21 14:39] LABS: HYPOCHROMIA 1+; POLYCHROMASIA 1+
[2018-01-21 14:40] LABS: <PLATELET ESTIMATE> DECREASED; <PLT MORPHOLOGY> NORMAL PLT MORPH; SPHEROCYTES 1+; TEAR DROPS 1+
[2018-01-21 14:41] LABS: SCHISTOCYTES 1+
== END 2018-01-21 19:14 | disposition home or self-care (01) ==
LOC: ED 16:53
DX: K92.2 Gastrointestinal hemorrhage, unspecified (principal); D64.9 Anemia, unspecified
CPT/HCPCS: 36415; 36430; 80048; 82040; 85025; 85610; 85730; 86850; 86900; 86923; 99285; P9016

== ENCOUNTER 2020-08-03 21:23 | Emergency (ER) | payer MEDICARE, OTHER ==
[~2020-08-03] VITALS: Ht 172.7 cm; Wt 98.6 kg
[~2020-08-03 21:23] MED LIST changes: -ACET-1757 PO; +ACET-2065 PO; +ASCO500T8 PO; -BUME0.5T PO; +BUME0.5T2 PO; +CEFT2VIA53 IV; +HYDR12.517 PO; -HYDR12.53 PO; -HYDR12.58 PO; +HYDROCHLOROTH12.5 MG PO; +LACT20SO13 PO; +OMEP40CA42 PO; -OMEP40CA6 PO; +PANT40TA6 PO; +RIFA550T4 PO; -WARF1TAB PO; +WARF1TAB2 PO
[2020-08-03 21:26] VITALS: BP 175/52
--- NOTE | 2020-08-03 23:04 | NUR ---
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
== END 2020-08-04 01:11 | disposition home or self-care (01) ==
LOC: ED 08-04 00:01
DX: L24.9 Irritant contact dermatitis, unspecified cause (principal); K94.09 Other complications of colostomy; I10 Essential (primary) hypertension; E11.9 Type 2 diabetes mellitus without complications; Z90.49 Acquired absence of other specified parts of digestive tract; Z90.89 Acquired absence of other organs; Z87.891 Personal history of nicotine dependence
CPT/HCPCS: 99281

== ENCOUNTER 2020-08-09 14:26 | Outpatient (CLI) | payer MEDICARE, OTHER | END 2020-08-09 23:59 | disposition home or self-care (01) | LOC: WOUND 14:26 | PROVIDERS: ATTEND Internal Medicine | DX: K94.19 Other complications of enterostomy (principal); L98.491 Non-pressure chronic ulcer of skin of other sites limited to breakdown of skin; I10 Essential (primary) hypertension; R21 Rash and other nonspecific skin eruption; M19.90 Unspecified osteoarthritis, unspecified site; Z85.038 Personal history of other malignant neoplasm of large intestine; Z87.891 Personal history of nicotine dependence; Z90.89 Acquired absence of other organs; Z90.49 Acquired absence of other specified parts of digestive tract; Z88.0 Allergy status to penicillin; Z88.2 Allergy status to sulfonamides; Y83.8 Other surgical procedures as the cause of abnormal reaction of the patient, or of later complication, without mention of misadventure at the time of the procedure; Y92.238 Other place in hospital as the place of occurrence of the external cause | CPT/HCPCS: G0463 ==

== ENCOUNTER → 2020-08-12 | Outpatient (CLI) | payer MEDICARE, OTHER | END | disposition home or self-care (01) | LOC: WOUND 11:04 | PROVIDERS: ATTEND Internal Medicine | DX: R21 Rash and other nonspecific skin eruption (principal); L24.9 Irritant contact dermatitis, unspecified cause; E11.9 Type 2 diabetes mellitus without complications; I10 Essential (primary) hypertension; M19.90 Unspecified osteoarthritis, unspecified site; Z88.0 Allergy status to penicillin; Z88.2 Allergy status to sulfonamides; Z91.040 Latex allergy status; Z43.2 Encounter for attention to ileostomy; Z87.891 Personal history of nicotine dependence; Z90.49 Acquired absence of other specified parts of digestive tract; Z85.038 Personal history of other malignant neoplasm of large intestine | CPT/HCPCS: G0463 ==

== ENCOUNTER 2020-08-16 10:48 | Outpatient (CLI) | payer MEDICARE, OTHER ==
[~2020-08-16 10:48] MED LIST changes: -OMEP40CA42 PO; +OMEP40CA8 PO
[2021-01-11] MEDS ORDERED: MAGN400T50 PO (10:13)
[2021-01-11] MEDS ORDERED: LEVO500T8 PO (10:13)
[2021-01-11] MEDS ORDERED: LACT10SO24 PO (10:13)
== END 2020-08-16 23:59 | disposition home or self-care (01) ==
LOC: WOUND 10:48
PROVIDERS: ATTEND Internal Medicine
DX: I89.0 Lymphedema, not elsewhere classified (principal); E11.622 Type 2 diabetes mellitus with other skin ulcer; I87.331 Chronic venous hypertension (idiopathic) with ulcer and inflammation of right lower extremity; L97.212 Non-pressure chronic ulcer of right calf with fat layer exposed; K94.09 Other complications of colostomy; R21 Rash and other nonspecific skin eruption; L24.9 Irritant contact dermatitis, unspecified cause; I10 Essential (primary) hypertension; M19.90 Unspecified osteoarthritis, unspecified site; C18.9 Malignant neoplasm of colon, unspecified; Z88.0 Allergy status to penicillin; Z88.2 Allergy status to sulfonamides; Z91.040 Latex allergy status; Z87.891 Personal history of nicotine dependence; Z90.49 Acquired absence of other specified parts of digestive tract; Z85.038 Personal history of other malignant neoplasm of large intestine
CPT/HCPCS: 97597; 97598; G0463

== ENCOUNTER 2020-08-23 12:47 | Outpatient (CLI) | payer MEDICARE, OTHER ==
[~2020-08-23 12:47] MED LIST changes: +OMEP40CA42 PO; -OMEP40CA8 PO
== END 2020-08-23 23:59 | disposition home or self-care (01) ==
LOC: WOUND 12:47
PROVIDERS: ATTEND Internal Medicine
DX: I89.0 Lymphedema, not elsewhere classified (principal); E11.622 Type 2 diabetes mellitus with other skin ulcer; I87.331 Chronic venous hypertension (idiopathic) with ulcer and inflammation of right lower extremity; L97.212 Non-pressure chronic ulcer of right calf with fat layer exposed; R21 Rash and other nonspecific skin eruption; K94.09 Other complications of colostomy; L24.9 Irritant contact dermatitis, unspecified cause; I10 Essential (primary) hypertension; M19.90 Unspecified osteoarthritis, unspecified site; C18.9 Malignant neoplasm of colon, unspecified; Z88.0 Allergy status to penicillin; Z88.2 Allergy status to sulfonamides; Z91.040 Latex allergy status; Z87.891 Personal history of nicotine dependence; Z90.49 Acquired absence of other specified parts of digestive tract; Z85.038 Personal history of other malignant neoplasm of large intestine
CPT/HCPCS: 97597; 97598

== ENCOUNTER → 2020-08-28 | Outpatient (CLI) | payer MEDICARE, OTHER | END | disposition home or self-care (01) | LOC: WOUND 10:00 | PROVIDERS: ATTEND Internal Medicine | DX: I89.0 Lymphedema, not elsewhere classified (principal); E11.622 Type 2 diabetes mellitus with other skin ulcer; I87.331 Chronic venous hypertension (idiopathic) with ulcer and inflammation of right lower extremity; L97.212 Non-pressure chronic ulcer of right calf with fat layer exposed; R21 Rash and other nonspecific skin eruption; K94.09 Other complications of colostomy; L24.9 Irritant contact dermatitis, unspecified cause; I10 Essential (primary) hypertension; M19.90 Unspecified osteoarthritis, unspecified site; C18.9 Malignant neoplasm of colon, unspecified; Z88.0 Allergy status to penicillin; Z88.2 Allergy status to sulfonamides; Z91.040 Latex allergy status; Z87.891 Personal history of nicotine dependence; Z90.49 Acquired absence of other specified parts of digestive tract; Z85.038 Personal history of other malignant neoplasm of large intestine | CPT/HCPCS: G0463 ==

== ENCOUNTER → 2020-08-30 | Outpatient (CLI) | payer MEDICARE, OTHER | END | disposition home or self-care (01) | LOC: WOUND 10:55 | PROVIDERS: ATTEND Internal Medicine | DX: I87.331 Chronic venous hypertension (idiopathic) with ulcer and inflammation of right lower extremity (principal); E11.622 Type 2 diabetes mellitus with other skin ulcer; L97.312 Non-pressure chronic ulcer of right ankle with fat layer exposed; L97.212 Non-pressure chronic ulcer of right calf with fat layer exposed; I89.0 Lymphedema, not elsewhere classified; C18.9 Malignant neoplasm of colon, unspecified; K94.09 Other complications of colostomy; M19.90 Unspecified osteoarthritis, unspecified site; Z87.891 Personal history of nicotine dependence; Z79.899 Other long term (current) drug therapy; Z90.49 Acquired absence of other specified parts of digestive tract; Z90.89 Acquired absence of other organs | CPT/HCPCS: 97597; 97598 ==

== ENCOUNTER → 2020-09-02 | Outpatient (CLI) | payer MEDICARE, OTHER | END | disposition home or self-care (01) | LOC: WOUND 10:55 | PROVIDERS: ATTEND Internal Medicine | DX: I89.0 Lymphedema, not elsewhere classified (principal); E11.622 Type 2 diabetes mellitus with other skin ulcer; I87.331 Chronic venous hypertension (idiopathic) with ulcer and inflammation of right lower extremity; L97.212 Non-pressure chronic ulcer of right calf with fat layer exposed; R21 Rash and other nonspecific skin eruption; K94.09 Other complications of colostomy; L24.9 Irritant contact dermatitis, unspecified cause; I10 Essential (primary) hypertension; M19.90 Unspecified osteoarthritis, unspecified site; C18.9 Malignant neoplasm of colon, unspecified; Z88.0 Allergy status to penicillin; Z88.2 Allergy status to sulfonamides; Z91.040 Latex allergy status; Z87.891 Personal history of nicotine dependence; Z90.49 Acquired absence of other specified parts of digestive tract; Z79.899 Other long term (current) drug therapy; Z85.038 Personal history of other malignant neoplasm of large intestine | CPT/HCPCS: 29581 ==

== ENCOUNTER → 2020-09-06 | Outpatient (CLI) | payer MEDICARE, OTHER | END | disposition home or self-care (01) | LOC: WOUND 10:26 | PROVIDERS: ATTEND Internal Medicine | DX: I89.0 Lymphedema, not elsewhere classified (principal); E11.622 Type 2 diabetes mellitus with other skin ulcer; I87.331 Chronic venous hypertension (idiopathic) with ulcer and inflammation of right lower extremity; L97.212 Non-pressure chronic ulcer of right calf with fat layer exposed; R21 Rash and other nonspecific skin eruption; K94.09 Other complications of colostomy; L24.9 Irritant contact dermatitis, unspecified cause; I10 Essential (primary) hypertension; M19.90 Unspecified osteoarthritis, unspecified site; C18.9 Malignant neoplasm of colon, unspecified; Z88.0 Allergy status to penicillin; Z88.2 Allergy status to sulfonamides; Z91.040 Latex allergy status; Z87.891 Personal history of nicotine dependence; Z90.49 Acquired absence of other specified parts of digestive tract; Z79.899 Other long term (current) drug therapy; Z85.038 Personal history of other malignant neoplasm of large intestine | CPT/HCPCS: 97597; 97598 ==

== ENCOUNTER 2020-09-13 10:17 | Outpatient (CLI) | payer MEDICARE, OTHER ==
[~2020-09-13 10:17] MED LIST changes: -OMEP40CA42 PO; +OMEP40CA8 PO
== END 2020-09-13 23:59 | disposition home or self-care (01) ==
LOC: WOUND 10:17
PROVIDERS: ATTEND Internal Medicine
DX: I87.331 Chronic venous hypertension (idiopathic) with ulcer and inflammation of right lower extremity (principal); E11.622 Type 2 diabetes mellitus with other skin ulcer; L97.811 Non-pressure chronic ulcer of other part of right lower leg limited to breakdown of skin; L97.212 Non-pressure chronic ulcer of right calf with fat layer exposed; I89.0 Lymphedema, not elsewhere classified; K94.09 Other complications of colostomy; C18.9 Malignant neoplasm of colon, unspecified; M19.90 Unspecified osteoarthritis, unspecified site; I10 Essential (primary) hypertension; D64.9 Anemia, unspecified; Z87.891 Personal history of nicotine dependence; Z79.899 Other long term (current) drug therapy; Z90.49 Acquired absence of other specified parts of digestive tract; Z90.89 Acquired absence of other organs
CPT/HCPCS: 29581; 97597; 97598

== ENCOUNTER → 2020-09-17 | Outpatient (CLI) | payer MEDICARE, OTHER | END | disposition home or self-care (01) | LOC: WOUND 10:03 | PROVIDERS: ATTEND Internal Medicine | DX: I89.0 Lymphedema, not elsewhere classified (principal); E11.622 Type 2 diabetes mellitus with other skin ulcer; I87.331 Chronic venous hypertension (idiopathic) with ulcer and inflammation of right lower extremity; L97.212 Non-pressure chronic ulcer of right calf with fat layer exposed; R21 Rash and other nonspecific skin eruption; K94.09 Other complications of colostomy; L24.9 Irritant contact dermatitis, unspecified cause; I10 Essential (primary) hypertension; M19.90 Unspecified osteoarthritis, unspecified site; C18.9 Malignant neoplasm of colon, unspecified; Z88.0 Allergy status to penicillin; Z88.2 Allergy status to sulfonamides; Z91.040 Latex allergy status; Z87.891 Personal history of nicotine dependence; Z90.49 Acquired absence of other specified parts of digestive tract; Z79.899 Other long term (current) drug therapy; Z85.038 Personal history of other malignant neoplasm of large intestine | CPT/HCPCS: G0463 ==

== ENCOUNTER → 2020-09-20 | Outpatient (CLI) | payer MEDICARE, OTHER | END | disposition home or self-care (01) | LOC: WOUND 10:37 | PROVIDERS: ATTEND Internal Medicine | DX: S51.012A Laceration without foreign body of left elbow, initial encounter (principal); E11.622 Type 2 diabetes mellitus with other skin ulcer; I87.331 Chronic venous hypertension (idiopathic) with ulcer and inflammation of right lower extremity; L97.212 Non-pressure chronic ulcer of right calf with fat layer exposed; K94.09 Other complications of colostomy; L24.9 Irritant contact dermatitis, unspecified cause; R21 Rash and other nonspecific skin eruption; I10 Essential (primary) hypertension; M19.90 Unspecified osteoarthritis, unspecified site; C18.9 Malignant neoplasm of colon, unspecified; Z88.0 Allergy status to penicillin; Z88.2 Allergy status to sulfonamides; Z91.040 Latex allergy status; Z87.891 Personal history of nicotine dependence; Z90.49 Acquired absence of other specified parts of digestive tract; Z79.899 Other long term (current) drug therapy; Z85.038 Personal history of other malignant neoplasm of large intestine; X58.XXXA Exposure to other specified factors, initial encounter; Y99.8 Other external cause status; Y93.89 Activity, other specified; Y92.89 Other specified places as the place of occurrence of the external cause | CPT/HCPCS: G0463 ==

== ENCOUNTER → 2020-10-11 | Outpatient (CLI) | payer MEDICARE, OTHER | END | disposition home or self-care (01) | LOC: WOUND 10:16 | PROVIDERS: ATTEND Internal Medicine | DX: I87.331 Chronic venous hypertension (idiopathic) with ulcer and inflammation of right lower extremity (principal); E11.622 Type 2 diabetes mellitus with other skin ulcer; L97.812 Non-pressure chronic ulcer of other part of right lower leg with fat layer exposed; L97.212 Non-pressure chronic ulcer of right calf with fat layer exposed; L97.312 Non-pressure chronic ulcer of right ankle with fat layer exposed; S51.012D Laceration without foreign body of left elbow, subsequent encounter; S61.451A Open bite of right hand, initial encounter; K94.09 Other complications of colostomy; L24.9 Irritant contact dermatitis, unspecified cause; R21 Rash and other nonspecific skin eruption; I10 Essential (primary) hypertension; M19.90 Unspecified osteoarthritis, unspecified site; I89.0 Lymphedema, not elsewhere classified; C18.9 Malignant neoplasm of colon, unspecified; Z88.0 Allergy status to penicillin; Z88.2 Allergy status to sulfonamides; Z91.040 Latex allergy status; Z87.891 Personal history of nicotine dependence; Z90.49 Acquired absence of other specified parts of digestive tract; Z79.899 Other long term (current) drug therapy; Z85.038 Personal history of other malignant neoplasm of large intestine; X58.XXXD Exposure to other specified factors, subsequent encounter; W54.0XXA Bitten by dog, initial encounter; Y93.89 Activity, other specified; Y92.89 Other specified places as the place of occurrence of the external cause; Y99.8 Other external cause status | CPT/HCPCS: 97597; 97598; G0463 ==

== ENCOUNTER → 2020-10-18 | Outpatient (CLI) | payer MEDICARE, OTHER | END | disposition home or self-care (01) | LOC: WOUND 10:39 | PROVIDERS: ATTEND Internal Medicine Cardiovascular Disease | DX: I87.331 Chronic venous hypertension (idiopathic) with ulcer and inflammation of right lower extremity (principal); E11.622 Type 2 diabetes mellitus with other skin ulcer; L97.312 Non-pressure chronic ulcer of right ankle with fat layer exposed; L97.212 Non-pressure chronic ulcer of right calf with fat layer exposed; S51.012D Laceration without foreign body of left elbow, subsequent encounter; S61.451D Open bite of right hand, subsequent encounter; K94.09 Other complications of colostomy; L24.9 Irritant contact dermatitis, unspecified cause; R21 Rash and other nonspecific skin eruption; I10 Essential (primary) hypertension; M19.90 Unspecified osteoarthritis, unspecified site; I89.0 Lymphedema, not elsewhere classified; C18.9 Malignant neoplasm of colon, unspecified; Z88.0 Allergy status to penicillin; Z88.2 Allergy status to sulfonamides; Z91.040 Latex allergy status; Z87.891 Personal history of nicotine dependence; Z90.49 Acquired absence of other specified parts of digestive tract; Z79.899 Other long term (current) drug therapy; Z85.038 Personal history of other malignant neoplasm of large intestine; X58.XXXD Exposure to other specified factors, subsequent encounter; W54.0XXD Bitten by dog, subsequent encounter | CPT/HCPCS: G0463 ==

== ENCOUNTER 2020-11-01 11:06 | Outpatient (CLI) | payer MEDICARE, OTHER | END 2020-11-01 23:59 | disposition home or self-care (01) | LOC: WOUND 11:06 | PROVIDERS: ATTEND Internal Medicine | DX: I87.331 Chronic venous hypertension (idiopathic) with ulcer and inflammation of right lower extremity (principal); E11.622 Type 2 diabetes mellitus with other skin ulcer; L97.812 Non-pressure chronic ulcer of other part of right lower leg with fat layer exposed; L97.212 Non-pressure chronic ulcer of right calf with fat layer exposed; L97.312 Non-pressure chronic ulcer of right ankle with fat layer exposed; I89.0 Lymphedema, not elsewhere classified; K94.09 Other complications of colostomy; L24.9 Irritant contact dermatitis, unspecified cause; R21 Rash and other nonspecific skin eruption; I10 Essential (primary) hypertension; M19.90 Unspecified osteoarthritis, unspecified site; C18.9 Malignant neoplasm of colon, unspecified; Z88.0 Allergy status to penicillin; Z88.2 Allergy status to sulfonamides; Z91.040 Latex allergy status; Z87.891 Personal history of nicotine dependence; Z90.49 Acquired absence of other specified parts of digestive tract; Z79.899 Other long term (current) drug therapy; Z85.038 Personal history of other malignant neoplasm of large intestine | CPT/HCPCS: 97597; 97598 ==